=== PATIENT | female | born 1985 | race African-American/Black ===

== ENCOUNTER → 2017-07-03 11:38 | Outpatient (CLI) | payer MEDICAID, SELFPAY ==
[2017-07-03 12:46] LABS: Absolute Lymphocyte Count 2.88 X10^3/ul (0.83-4.51); Absolute Neutrophil Count 2.6 X10^3/uL (2.0-7.7); Basophil# 0.03 X10^3/uL; Basophil% 0.5 % (0-1); Eosinophil# 0.17 X10^3/uL; Eosinophils% 2.7 % (0-5); Hematocrit 29.8 % (37-47); Hemoglobin 9.5 g/dl (12.0-15.0); Lymphocyte # 2.88 X10^3/ul (4.0); Lymphocyte % 46.3 % (19-41); Mean Corp Hgb Conc 31.9 g/gl (32-36); Mean Corpuscular Hgb 24.7 pg (27.0-32.0); Mean Corpuscular Volume 77.6 fL (81-99); Mean Platelet Vol. 10.3 fl (6.2-12.0); Monocyte# 0.59 X10^3/uL; Monocyte% 9.5 % (0-10); Neutrophil # 2.55 X10^3/uL (2.7-7.7); Platelet Count 320 K/mm3 (150-450); RBC Distribution Width CV 16.2 % (11.6-14.6); RBC Distribution Width SD 43.9 fl (35.1-43.9); Red Blood Count 3.84 M/mm3 (4.2-5.4); White Blood Count 6.2 K/mm3 (4.4-11.0)
[2017-07-03 12:51] LABS: POSITIVE COUNT NO; POSITIVE DIFFERENTIAL NO; POSITIVE MORPHOLOGY NO
[2017-07-03 13:21] LABS: Estradiol 64.1 pg/mL; Follicle Stimulating Hormone 5.4 mIU/mL; Prolactin 7.5 ng/mL; Thyroid Stim Hormone (TSH) 2.22 uIU/mL (0.358-3.74)
[2017-07-07 14:07] LABS: DHEA Sulfate 45.7 ug/dL (84.8-378.0); Dilute Russell Viper Venom 34.4 sec (0.0-47.0); Homocyst(e)ine 9.7 umol/L (0.0-15.0); PTT-Lupus Anticoagulant 31.9 sec (0.0-51.9); Protein C, Functional 113 % (73-180); dPT CONFIRMATION RATIO 1.02 Ratio (0.00-1.40)
[2017-07-07 14:16] LABS: Activated Protein C Resistance 2.5 ratio (2.2-3.5); Anti-Cardiolipin Ab, IgG, Qn < 9 GPL U/mL (0-14); Anti-Cardiolipin Ab, IgM, Qn < 9 MPL U/mL (0-12); Antithrombin 3 Function 96 % (75-135); Beta-2-Glycoprotein I IgG <9 (0-20); Beta-2-Glycoprotein I IgM <9 (0-32); Interpretation Comment: (.); Protein S, Free 100 % (57-157); Testosterone Free 1.5 pg/mL (0.0-4.2)
[2017-07-08 11:46] LABS: 17-Hydroxyprogesterone 51 ng/dL (.)
== END ==
PROVIDERS: Family Provider Family Medicine; PCP Family Medicine; Visit Provider Obstetrics & Gynecology
DX: N92.0 Excessive and frequent menstruation with regular cycle (principal)
CPT/HCPCS: 36415; 81240; 81241; 82627; 82670; 83001; 83090; 83498; 84146; 84402; 84443; 85025; 85300; 85303; 85307; 85420; 85613; 85705; 85732; 82626

== ENCOUNTER → 2017-07-15 08:02 | Outpatient (CLI) | payer MEDICAID, SELFPAY ==
--- NOTE | 2017-07-15 08:04 | US_ITS ---
STUDY: ULTRASOUND OF THE FEMALE PELVIS - COMPLETE REASON FOR EXAM: Female, 32 years old. Dysfunctional uterine bleeding. Polycystic ovaries syndrome. LMP: May 25, 2017. TECHNIQUE: Transabdominal and Transvaginal TECHNICAL QUALITY: Adequate. COMPARISON: Comparison is made with prior examination dated November 14, 2013. FINDINGS: The uterus is anteverted and is in a midline position. The uterus is enlarged and measures 13.8 cm x 7.4 cm x 6.0 cm. Normal uterine cervix. The endometrium measures 7.0 mm in thickness, and is hyperechoic. There is no demonstrated endometrial mass. 2 fibroids are seen. The larger measures 3.9 cm x 3.1 cm x 2.4 cm. I.U.D. - The patient does not have an I.U.D. The right ovary is visualized. The right ovary measures 3.9 cm x 3.2 cm x 2.5 cm. There is no right ovarian cyst or ovarian mass. There is no visualized right adnexal mass or complex lesion. There is normal arterial and normal venous vascularity. The left ovary is visualized. The left ovary measures 4.0 cm x 52.8 cm x 2.0 cm. There is no left ovarian cyst or ovarian mass. There is no visualized left adnexal mass or complex lesion. There is normal arterial and normal venous vascularity. There is no fluid in the cul-de-sac. US/Transvaginal Non- IMPRESSION: Enlarged fibroid uterus. Electronically Signed: Alex Shipman MD at 14:25 EDT Tel [phone], Service support ,
--- NOTE | 2017-07-15 08:04 | US_ITS ---
STUDY: ULTRASOUND OF THE FEMALE PELVIS - COMPLETE REASON FOR EXAM: Female, 32 years old. Dysfunctional uterine bleeding. Polycystic ovaries syndrome. LMP: May 25, 2017. TECHNIQUE: Transabdominal and Transvaginal TECHNICAL QUALITY: Adequate. COMPARISON: Comparison is made with prior examination dated November 14, 2013. FINDINGS: The uterus is anteverted and is in a midline position. The uterus is enlarged and measures 13.8 cm x 7.4 cm x 6.0 cm. Normal uterine cervix. The endometrium measures 7.0 mm in thickness, and is hyperechoic. There is no demonstrated endometrial mass. 2 fibroids are seen. The larger measures 3.9 cm x 3.1 cm x 2.4 cm. I.U.D. - The patient does not have an I.U.D. The right ovary is visualized. The right ovary measures 3.9 cm x 3.2 cm x 2.5 cm. There is no right ovarian cyst or ovarian mass. There is no visualized right adnexal mass or complex lesion. There is normal arterial and normal venous vascularity. The left ovary is visualized. The left ovary measures 4.0 cm x 52.8 cm x 2.0 cm. There is no left ovarian cyst or ovarian mass. There is no visualized left adnexal mass or complex lesion. There is normal arterial and normal venous vascularity. There is no fluid in the cul-de-sac. US/Pelvic (Non ) IMPRESSION: Enlarged fibroid uterus. Electronically Signed: Alex Shipman MD at 14:25 EDT Tel [phone], Service support ,
[2017-07-15 09:32] VITALS: BP 146/94; RESP 18; TEMP 36.1; O2SAT 100; BMI 48.9
[2017-07-15] MEDS: Cosyntropin 0.25 MG Vial IV (09:40)
[2017-07-15 10:05] LABS: Anion Gap 5 (5-15); BUN 6 mg/dL (7-18); BUN/Creat Ratio 6.7 RATIO (10-20); Calcium,Total 8.4 mg/dL (8.5-10.1); Chloride 107 mmol/L (98-107); Creatinine, Serum 0.89 mg/dL (0.55-1.02); EST Glomerular Filtration Rate 78 mL/min (>60); Est Glom Filt Rate - Afr Amer 95 mL/min (>60); Estimated Creatinine Clearance 89.06 ml/min; Glucose 94 mg/dL (74-106); Potassium 4.1 mmol/L (3.5-5.1); Sodium Level 137 mmol/L (136-145)
== END ==
PROVIDERS: Visit Provider Obstetrics & Gynecology
DX: R94.7 Abnormal results of other endocrine function studies (principal); N92.0 Excessive and frequent menstruation with regular cycle
CPT/HCPCS: 96374; 76830; 76856; 80048; 82533; 93976; A4216; J0834

== ENCOUNTER 2018-10-27 18:17 | Emergency (ER) | payer MEDICAID, SELFPAY ==
[2018-10-27 18:18] VITALS: BP 160/81; PULSE 108; RESP 17; TEMP 36.6; O2SAT 99; BMI 47.2
--- NOTE | 2018-10-27 18:29 | EKG12_ITS ---
Test Reason : CP Blood Pressure : / mmHG Vent. Rate : 100 BPM Atrial Rate : 100 BPM P-R Int : 202 ms QRS Dur : 086 ms QT Int : 354 ms P-R-T Axes : 053 076 017 degrees QTc Int : 456 ms Normal sinus rhythm Nonspecific T wave abnormality Abnormal ECG No previous ECGs available Confirmed by EDGARDO MARTINO, ANGELA ([id number]), publication editor GINA CASEY ([id number]) on 11/10/2018 2:18:07 PM Referred By: ALLEN Confirmed By:ANGELA REYNOSO MD
--- NOTE | 2018-10-27 18:31 | ED.VIS.GEN ---
History of Present Illness Chief Complaint: Shortness of Breath Informant: Patient Onset: Weeks - 1 Narrative: Worsening dyspnea over the past week. No chest pains. No cough. Reports increasing left calf pain past no recent travel, surgeries, immobilizations. 5 days. No history of PE reports history of left DVT 2015 treated for 6 months. Reports was started on oral contraceptives prior to her DVT. Since then been taken off. There is no tobacco history. No family history of clotting disorders. History of anemia on iron supplements due to heavy menstrual periods. Irregular menstrual cycles. Denies abdominal pain. No vomiting or diarrhea. Prior similar symptoms: Yes Past Medical History - Allergies and Home Meds Allergies/Adverse Reactions: Allergies morphine Adverse Reaction (Verified 10/27/18 18:18) Itching sulfamethoxazole [From Bactrim] Adverse Reaction (Verified 10/27/18 18:18) Itching trimethoprim [From Bactrim] Adverse Reaction (Verified 10/27/18 18:18) Itching Primary Care Physician: Care Physician,No Primary [Primary Care Provider] - Smoking Status: Never smoker Review of Systems General: Denies: Chills, Fever, Sweats Eyes: Denies: Visual changes - bilaterally, Diplopia ENT: Denies: Rhinorrhea, Sore throat Cardiovascular: Denies: Chest pain, Palpitations Respiratory: Reports: Dyspnea. Denies: Cough, Dyspnea on exertion Gastrointestinal: Denies: Abdominal pain, Nausea, Vomiting, Diarrhea, Melena, Hematochezia Genitourinary: Denies: Dysuria, Hematuria, Frequency Musculoskeletal: Reports: Myalgias. Denies: Back pain, Extremity Pain Skin: Denies: Rash, Wounds Neurological: Denies: Headache, Weakness, Numbness Physical Exam Vital Signs/Narrative: Vital Signs Temp Pulse Resp BP Pulse Ox 10/27/18 18:18 97.8 F 108 H 17 160/81 H 99 Inital Vital Signs reviewed: Yes General: Well nourished, Well developed, No Acute Distress Head: Normocephalic, Atraumatic Eyes: Perrl, EOMI ENT: Moist mucous membranes, No rhinorrhea Neck: Supple, Nontender Cardiovascular: Regular rate, Regular rhythm, No murmurs Respiratory: No distress, CTA bilaterally, Chest nontender Abdomen: Soft, Nontender, Nondistended, Normal bowel sounds Back: Nontender, Normal Inspection Extremities: No edema, - - Left calf pain, pulses intact distally. Skin: Normal color, No rash Neurological: Alert, Oriented x3, Cranial nerves II-XII grossly intact, Normal Strength, Normal Sensation Psychological: Normal affect, Normal Mood Diagnostic/Tx/Re-eval Abnormal Lab Results 10/27/18 10/27/18 10/27/18 18:50 18:50 18:50 WBC 9.6 RBC 4.57 Hgb 8.3 L Hct 27.4 L MCV 60.0 L MCH 18.2 L MCHC 30.3 L RDW 21.0 H RDW Differential 44.1 H Plt Count 366 MPV 9.1 Immature Gran % (Auto) 0.200 Neut % (Auto) 52.9 Lymph % (Auto) 36.0 Gilmer % (Auto) 8.1 Eos % (Auto) 2.3 Baso % (Auto) 0.5 Absolute Neuts (auto) 5.1 Absolute Lymphs (auto) 3.46 Total Counted Not Reportable Differential Comment SCANNED Diff Path Review May foll Platelet Estimate ADEQUATE Plt Morphology Comment LARGE Hypochromasia 2+ Poikilocytosis RARE Anisocytosis 4+ Microcytosis 2+ Target Cells RARE Ovalocytes 1+ PT 13.5 INR 1.1 APTT 26.3 D-Dimer Quant (PE/DVT) 2.02 H* Sodium 137 Potassium 3.4 L Chloride 105 Carbon Dioxide 26.0 Anion Gap 6 BUN 6 L Creatinine 0.96 Estim Creat Clear Calc 81.81 Est GFR (MDRD) Af Amer 87 Est GFR (MDRD) Non-Af 72 BUN/Creatinine Ratio 6.3 L Glucose 96 Calcium 9.0 Serum , Qual 10/27/18 18:50 WBC RBC Hgb Hct MCV MCH MCHC RDW RDW Differential Plt Count MPV Immature Gran % (Auto) Neut % (Auto) Lymph % (Auto) Gilmer % (Auto) Eos % (Auto) Baso % (Auto) Absolute Neuts (auto) Absolute Lymphs (auto) Total Counted Differential Comment Diff Path Review Platelet Estimate Plt Morphology Comment Hypochromasia Poikilocytosis Anisocytosis Microcytosis Target Cells Ovalocytes PT INR APTT D-Dimer Quant (PE/DVT) Sodium Potassium Chloride Carbon Dioxide Anion Gap BUN Creatinine Estim Creat Clear Calc Est GFR (MDRD) Af Amer Est GFR (MDRD) Non-Af BUN/Creatinine Ratio Glucose Calcium Serum , Qual NEGATIVE CTA chest: No PE Left lower extremity ultrasound: Popliteal DVT - EKG Initial EKG Interpretation: Sinus Rhythm - Sinus rhythm of 100, no ST changes. Nonspecific T wave inversion in leads III. There is a Q3 T3 noted there is no S1. - Medical Decision Making Patient initial tachycardia, improved. She is given IV fluids. Pulse ox stable. Work-up positive left popliteal DVT. CTA chest negative. Hemoglobin 8.3 history of anemia. She is on iron supplements. Denies GI bleed history. Normal creatinine clearance. She started on Xarelto. With unprovoked recurrent DVT discussed with patient lifelong therapy would be treatment. She likely need hypercoagulable work-up as an outpatient. I spoke with alarm signaler Dr. Lares, sent for Cardiolipin antibodies and prothrombin gene mutation(factor 2) for further evaluation. He will follow-up as an outpatient for further work-up. Patient updated. Prescription for 21-day course twice daily Xarelto, will continue as an outpatient. All questions were answered. 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 Take prescription iron supplements. Left popliteal DVT. Negative CTA chest for PE. Takes Xarelto as prescribed, follow-up with Dr. Lares for further work-up as an outpatient.
--- NOTE | 2018-10-27 18:38 | ED.RN ---
NO OLD EKGS IN MUSE
[2018-10-27 19:03] LABS: Absolute Lymphocyte Count 3.46 X10^3/ul (0.83-4.51); Absolute Neutrophil Count 5.1 X10^3/uL (2.0-7.7); Basophil# 0.05 X10^3/uL; Basophil% 0.5 % (0-1); Eosinophil# 0.22 X10^3/uL; Eosinophils% 2.3 % (0-5); Hematocrit 27.4 % (37-47); Hemoglobin 8.3 g/dl (12.0-15.0); Lymphocyte # 3.46 X10^3/ul (4.0); Mean Corp Hgb Conc 30.3 g/gl (32-36); Mean Corpuscular Hgb 18.2 pg (27.0-32.0); Mean Platelet Vol. 9.1 fl (6.2-12.0); Monocyte# 0.78 X10^3/uL; Monocyte% 8.1 % (0-10); Neutrophil # 5.08 X10^3/uL (2.7-7.7); Neutrophil % 52.9 % (47-70); Platelet Count 366 K/mm3 (150-450); RBC Distribution Width SD 44.1 fl (35.1-43.9); Red Blood Count 4.57 M/mm3 (4.2-5.4); White Blood Count 9.6 K/mm3 (4.4-11.0)
[2018-10-27 19:04] LABS: Differential Indicated SCAN CRITERIA MET; POSITIVE COUNT NO; POSITIVE DIFFERENTIAL NO; POSITIVE MORPHOLOGY YES
[2018-10-27 19:07] LABS: International Normalized Ratio 1.1; Prothrombin Time (Protime)PT. 13.5 SECONDS (11.7-14.9)
[2018-10-27 19:08] LABS: Partial Thromboplast Time 26.3 Seconds (24.1-36.2)
[2018-10-27 19:10] LABS: Anion Gap 6 (5-15); BUN 6 mg/dL (7-18); BUN/Creat Ratio 6.3 RATIO (10-20); Chloride 105 mmol/L (98-107); Creatinine, Serum 0.96 mg/dL (0.55-1.02); EST Glomerular Filtration Rate 72 mL/min (>60); Est Glom Filt Rate - Afr Amer 87 mL/min (>60); Estimated Creatinine Clearance 81.81 ml/min; Glucose 96 mg/dL (74-106); Potassium 3.4 mmol/L (3.5-5.1); Sodium Level 137 mmol/L (136-145)
--- NOTE | 2018-10-27 19:10 | US_ITS ---
STUDY: VENOUS DOPPLER ULTRASOUND - BILATERAL LOWER EXTREMITIES REASON FOR EXAM: Female, 33 years old. Swelling. TECHNIQUE: Ultrasound evaluation of the deep vein system to include akins-scale imaging and compression was performed. Akins-scale imaging and Doppler sonographic evaluation, including duplex spectral analysis and qualitative color flow sonography, was performed. COMPARISON: None. FINDINGS: RIGHT LEG Common Femoral Vein: Normal compression, spontaneity and augmentation. Normal color Doppler. Common Femoral Vein/Greater Saphenous Junction: Normal compression, spontaneity and augmentation. Normal color Doppler. Femoral Proximal: Normal compression, spontaneity and augmentation. Normal color Doppler. Femoral Middle: Normal compression, spontaneity and augmentation. Normal color Doppler. Femoral Distal: Normal compression, spontaneity and augmentation. Normal color Doppler. Popliteal Vein: Normal compression, spontaneity and augmentation. Normal color Doppler. Posterior Tibial Vein: Normal color Doppler. Peroneal Vein: Normal color Doppler. LEFT LEG Common Femoral Vein: Normal compression and spontaneity. Normal color Doppler. Common Femoral Vein/Greater Saphenous Junction: Normal compression and spontaneity. Normal color Doppler. Femoral Proximal: Normal compression and spontaneity. Normal color Doppler. Femoral Middle: Normal compression and spontaneity. Normal color Doppler. Femoral Distal: Normal compression and spontaneity. Normal color Doppler. Popliteal Vein: There is a echogenic noncompressible focus consistent with underlying thrombus which is occlusive. US/Venous Duplex Imag/Manav Extrem IMPRESSION: Thrombosed left popliteal vein. No demonstrated deep vein thrombosis within the right lower extremity. Electronically Signed: Liane Carreno MD at 20:35 EDT Tel , Service support ,
[2018-10-27 19:17] VITALS: BP 158/85; PULSE 101; RESP 17; O2SAT 96
[2018-10-27 19:29] LABS: D-Dimer Quantitative (DVT/PE) 2.02 FEU/ug/m (0.27-0.49); Internal QC Validated? YES +Cl - CLEAR BKGD; Pregnancy, Serum, hCG Quali. NEGATIVE Negative
--- NOTE | 2018-10-27 19:30 | ED.RN ---
LAB CALLED WITH D-DIMER 2.02, PRIMARY NURSE, KASANDRA REAVES RN, AND DR. NANNETTE ROSA INFORMED OF SAME.
--- NOTE | 2018-10-27 19:34 | CT_ITS ---
STUDY: CTA CHEST REASON FOR EXAM: Female, 33 years old. Elevated d-dimer. History of DVT. RADIATION DOSAGE (If Supplied By Facility): CTDIvol = ( 12.66 ) mGy, DLP = ( 549.35 ) mGycm TECHNIQUE: The examination was performed with the intravenous administration of 100ML IV Isovue 370. Post-processing of the angiographic images was performed, with multiplanar reformation and 3D reconstruction. Individualized dose optimization techniques were used for this CT. COMPARISON: None. FINDINGS: Normal enhancement of the main pulmonary artery and right and left pulmonary arteries. There is suboptimal enhancement of the bilateral peripheral pulmonary arteries. There is no demonstrated pulmonary embolism. Normal thoracic aorta and visualized great vessels. There is no demonstrated aortic dissection. Normal heart and pericardium. Normal mediastinum. Normal hilar regions. Normal visualized trachea and bronchi. The lungs are well expanded. Normal pulmonary parenchyma. Normal pleura. Normal chest wall structures. Normal osseous structures. Normal visualized upper abdomen. CT/CTA Chest W/WO Contrast IMPRESSION: Normal CTA chest examination, without a demonstrated gross pulmonary embolism or arterial dissection. Electronically Signed: Liane Carreno MD at 20:48 EDT Tel , Service support ,
[2018-10-27 19:55] LABS: Anisocytosis 4+; Differential Comment SCANNED; Hypochromasia 2+; Microcytosis 2+; Ovalocyte 1+; Platelet Estimate ADEQUATE (ADEQ); Poikilocytosis RARE; Target Cells RARE
[2018-10-27 19:56] LABS: Platelet Morphology LARGE
[2018-10-27 21:00] VITALS: BP 129/84; PULSE 88; RESP 16; O2SAT 100
[2018-10-27] MEDS: Rivaroxaban 15 MG Tablet PO (21:37)
[2018-10-27 22:00] VITALS: BP 124/82; PULSE 78; RESP 18; O2SAT 100
[2018-10-29 10:21] LABS: Pathologist Review Reviewed
[2018-10-30 11:59] LABS: Anti-Cardiolipin Ab, IgA, Qn < 9 APL U/mL (0-11); Anti-Cardiolipin Ab, IgG, Qn 9 GPL U/mL (0-14); Anti-Cardiolipin Ab, IgM, Qn < 9 MPL U/mL (0-12)
== END 2018-10-27 22:26 | disposition home or self-care (01) ==
PROVIDERS: Emergency Provider Emergency Medicine
DX: I82.432 Acute embolism and thrombosis of left popliteal vein (principal); D64.9 Anemia, unspecified; Z86.718 Personal history of other venous thrombosis and embolism
CPT/HCPCS: 71275; 80048; 84703; 85025; 85379; 85610; 85730; 86147; 93005; 93970; 96360; 99284; J7030; J7040; Q9967; A4216

== ENCOUNTER → 2021-10-16 | Outpatient (CLI) | payer MEDICAID, SELFPAY ==
[2021-10-16 15:49] LABS: Absolute Neutrophil Count 3.6 X10^3/uL (2.0-7.7); Basophil# 0.05 X10^3/uL; Basophil% 0.6 % (0-1); Eosinophil# 0.19 X10^3/uL; Eosinophils% 2.5 % (0-5); Hematocrit 27.2 % (37-47); Hemoglobin 7.6 g/dL (12.0-15.0); Lymphocyte % 41.3 % (19-41); Mean Corp Hgb Conc 27.9 g/dL (32-36); Mean Corpuscular Hgb 17.9 pg (27.0-32.0); Mean Corpuscular Volume 64.2 fL (81-99); Monocyte# 0.69 X10^3/uL; Monocyte% 8.9 % (0-10); NRBC Flagged by Analyzer 0 % (0-5); Neutrophil % 46.4 % (47-70); Platelet Count 556 K/mm3 (150-450); RBC Distribution Width SD 44.2 fl (35.1-43.9); Red Blood Count 4.24 M/mm3 (4.2-5.4); White Blood Count 7.8 K/mm3 (4.4-11.0)
[2021-10-16 19:54] LABS: ALB/GLOB Ratio 0.7 RATIO (0.9-2.4); AST(SGOT) 15 U/L (15-37); Alanine Aminotransfer ALT/SGPT 23 U/L (13-56); Albumin, Serum 3.4 g/dL (3.2-5.0); Alkaline Phosphatase 49 U/L (45-117); Anion Gap 4 (5-15); BUN 11 mg/dL (7-18); BUN/Creat Ratio 11.3 RATIO (10-20); Calcium,Total 9.2 mg/dL (8.5-10.1); Chloride 105 mmol/L (98-107); Cholesterol 198 mg/dL (200); Creatinine, Serum 0.98 mg/dL (0.55-1.02); EST Glomerular Filtration Rate 69 mL/min (>60); Est Glom Filt Rate - Afr Amer 83 mL/min (>60); Ferritin 3 ng/mL (8-252); Glucose 88 mg/dL (74-106); High Density Lipoprotein 55 mg/dL; Iron 13 ug/dL (50-170); Iron Binding Capacity,Total 504 ug/dL (250-450); Potassium 4.1 mmol/L (3.5-5.1); Protein, Total 8.4 g/dL (6.4-8.2); Sodium Level 139 mmol/L (136-145); Triglycerides 95 mg/dL; Very Low Density Lipoprotein 19 mg/dL (5-40)
== END | disposition home or self-care (01) ==
LOC: BIMLAB 14:41
PROVIDERS: PCP Internal Medicine; Referring Provider Internal Medicine; Visit Provider Internal Medicine
DX: D50.0 Iron deficiency anemia secondary to blood loss (chronic) (principal); E66.01 Morbid (severe) obesity due to excess calories; Z68.42 Body mass index [BMI] 45.0-49.9, adult; Z86.718 Personal history of other venous thrombosis and embolism; Z13.6 Encounter for screening for cardiovascular disorders
CPT/HCPCS: 36415; 80053; 80061; 82728; 83540; 83550; 85025

== ENCOUNTER → 2021-10-23 | Outpatient (CLI) | payer MEDICAID, SELFPAY ==
--- NOTE | 2021-10-23 19:10 | CT_ITS ---
STUDY: CT ABDOMEN AND PELVIS WITH CONTRAST REASON FOR EXAM: Female, 36 years old. Suspected hernia RADIATION DOSAGE (If Supplied By Facility): CTDIvol = ( 26.62 ) mGy, DLP = ( 1752.05 ) mGycm TECHNIQUE: Transaxial images were obtained from the dome of the diaphragm to the symphysis pubis without oral contrast. Oral and amp; IV Readi-CAT and amp; 100mL Isovue-370 was administered. Sagittal and coronal images were reconstructed. Individualized dose optimization techniques were used for this CT. COMPARISON: None. FINDINGS: The visualized lung bases are unremarkable. The visualized portions of the heart are within normal limits. Normal liver. Normal gallbladder and extrahepatic biliary system. Normal spleen. Normal pancreas. Normal bilateral adrenal glands. Normal right kidney. Normal left kidney. Normal visualized stomach. Normal small intestine. Normal colon. The appendix is visualized and appears normal. Normal abdominal aorta. Normal inferior vena cava. Normal retroperitoneum. Normal urinary bladder. There is a small fat-containing supraumbilical hernia slightly left of midline with a neck measuring 1.4 cm in diameter. Normal osseous structures. CT/Abdomen/Pelvis WITH Contrast IMPRESSION: Supraumbilical fat-containing ventral hernia. Electronically Signed: Liane Carreno MD at 20:04 EDT ,
--- NOTE | 2021-10-23 19:47 | BH.SGPN.T2 ---
Behaviors/Verbalizations/Mental Status: [] Client Response/Progress/Benefit: [] Narrative Note: []PT STATED SHE FELT IF THERE WAS FLUID IN HER UPPER ARM-WARM COMPRESSION USED AND REMOVED HER IV-GAVE HER PAPERWORK FOR INFORMATION IN CASE SHE HAS ISSUES
== END | disposition home or self-care (01) ==
LOC: CT 19:09
PROVIDERS: PCP Internal Medicine; Visit Provider Internal Medicine
DX: K43.9 Ventral hernia without obstruction or gangrene (principal)
CPT/HCPCS: 74177; Q9967; A4216

== ENCOUNTER → 2021-11-19 | Outpatient (CLI) | payer MEDICAID, SELFPAY ==
[2021-11-19 15:44] LABS: Absolute Lymphocyte Count 2.29 X10^3/uL (0.83-4.51); Absolute Neutrophil Count 3.5 X10^3/uL (2.0-7.7); Basophil# 0.03 X10^3/uL; Basophil% 0.4 % (0-1); Eosinophil# 0.17 X10^3/uL; Eosinophils% 2.5 % (0-5); Hematocrit 24.6 % (37-47); Hemoglobin 6.8 g/dL (12.0-15.0); Lymphocyte # 2.29 X10^3/ul (0.83-4.51); Lymphocyte % 34.1 % (19-41); Mean Corp Hgb Conc 27.6 g/dL (32-36); Mean Corpuscular Hgb 17.2 pg (27.0-32.0); Mean Corpuscular Volume 62.1 fL (81-99); Mean Platelet Vol. 9.8 fl (6.2-12.0); Monocyte# 0.68 X10^3/uL; Monocyte% 10.1 % (0-10); NRBC Flagged by Analyzer 0 % (0-5); Neutrophil # 3.54 X10^3/uL (2.7-7.7); Neutrophil % 52.8 % (47-70); POSITIVE MORPHOLOGY YES; Platelet Count 514 K/mm3 (150-450); RBC Distribution Width CV 20.6 % (11.6-14.6); RBC Distribution Width SD 44.5 fl (35.1-43.9); Red Blood Count 3.96 M/mm3 (4.2-5.4); White Blood Count 6.7 K/mm3 (4.4-11.0)
[2021-11-19 16:08] LABS: Differential Indicated SCAN CRITERIA MET
[2021-11-19 16:10] LABS: Anisocytosis 2+; Hypochromasia 2+; Microcytosis 2+; Platelet Estimate MOD INC (ADEQ); Platelet Morphology LARGE; Red Cell Morphology N CHROM NORMAL (NORM C&C)
[2021-11-19 16:15] LABS: Ferritin 3 ng/mL (8-252); Iron 21 ug/dL (50-170); Iron Binding Capacity,Total 481 ug/dL (250-450)
[2021-11-20 12:52] LABS: Pathologist Review Reviewed
== END | disposition home or self-care (01) ==
LOC: BIMLAB 11:42
PROVIDERS: PCP Internal Medicine; Referring Provider Internal Medicine; Visit Provider Internal Medicine
DX: D50.0 Iron deficiency anemia secondary to blood loss (chronic) (principal)
CPT/HCPCS: 36415; 82728; 83540; 83550; 85025

== ENCOUNTER 2021-11-28 20:50 | Emergency (ER) | payer MEDICAID, SELFPAY ==
[2021-11-28 20:51] VITALS: BP 172/102; PULSE 100; RESP 18; TEMP 36.6; O2SAT 98; BMI 43.8
--- NOTE | 2021-11-28 21:09 | EKG12_ITS ---
Test Reason : PALPITATIONS Blood Pressure : / mmHG Vent. Rate : 095 BPM Atrial Rate : 095 BPM P-R Int : 196 ms QRS Dur : 084 ms QT Int : 362 ms P-R-T Axes : 052 071 027 degrees QTc Int : 454 ms Normal sinus rhythm Nonspecific T wave abnormality Abnormal ECG Confirmed by PRANAY MARTINO, JARED ([id number]), editor index HANNAH MALLOY ([id number]) on 12/03/2021 11:11:06 AM Referred By: JULITO/HIREN Confirmed By:HUEY PIRES MD
--- NOTE | 2021-11-28 21:09 | EX.ED.DYSGE1 ---
HPI History of Present Illness Chief Complaint: Abn Labs Detail of Chief Complaint: anemic Informant: patient Narrative Narrative: Patient has a history of menorrhagia since she was age 13, in addition to iron deficiency anemia, with recent lab studies showing low iron and high ferritin and TIBC 1-2 weeks ago. She does not tolerate iron supplements, rather is taking Geritol in order to get at least a little. Recently her levels were around 7.6, then she had a menstrual cycle again and went down to 6.7. Her PCP is trying to get her set up for iron infusions but there were insurance issues and she has not been able to get it yet, so since she has been continuing to feel very fatigued and dyspnea with little exertion, she was sent for another evaluation of her H&H in the meantime to see if she needs a blood transfusion, she has had many throughout the years off and on. They were trying to get it done as an outpatient but she had work until late in the lab was already closed and she was sent to the ER. She states with short stints of walking, such as from her home to her car, she gets chest heaviness, very dyspneic, her heart beats hard and occasionally fast, lightheaded at times, and needs to rest, which helps all the symptoms resolve in a short period of time. Since her last blood draw, she has not had a menstrual cycle yet. She is scheduled to see Dr. Mak, hoping that she can get a hysterectomy scheduled. She also has a reducible hernia ventrally supraumbilical that she is hoping to have repaired 1 day as well. [facility] Medical History Abnormal Pap smear of cervix Anemia DVT (deep venous thrombosis) Headache, migraine Murmur Polycystic ovaries Home Medications bupropion HCl 150 mg tablet,12 hr sustained-release (Wellbutrin SR) 150 mg PO BID #60 ea 11/19/21 [Rx Last Taken Unknown] geritol liquid PO 11/19/21 [History Last Taken Unknown] Allergy/AdvReac Type Severity Reaction Status Date / Time morphine AdvReac Itching Verified 11/28/21 20:53 sulfamethoxazole AdvReac Itching Verified 11/28/21 20:53 [From Bactrim] trimethoprim [From Bactrim] AdvReac Itching Verified 11/28/21 20:53 Family History Grandmother Breast cancer Grandfather Cancer lung Throat cancer Mental disorder schizophrenia Mother Alcoholism Autoimmune disorder RA and fibromyalgia Father Alcoholism Aunt Cervical cancer Melanoma Ovarian cancer Surgical History delivery delivered History of foot surgery Social History household members: significant other and children current occupational status: employed 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 Smoking Status: Never smoker Electronic Cigarette Use: not used alcohol intake: never substance use type: does not use caffeine: Yes what type of physical activity do you participate in: aerobics frequency: 5-6 times per week seatbelt use: always do you feel safe at home: Yes 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 ROS ED Constitutional Constitutional ED: Reports fatigue; Denies chills or fever(s) Eyes Eyes: Denies change in vision or diplopia ENT ENT ED: Denies rhinorrhea or sore throat Cardiovascular Cardiovascular: Reports as per HPI, chest pain, lightheadedness and pounding heartbeat; Denies syncope Respiratory/Chest Respiratory/Chest: Reports dyspnea on exertion; Denies cough Gastrointestinal Gastrointestinal: Denies abdominal pain, diarrhea, nausea or vomiting Genitourinary Genitourinary ED: Reports other Details: heavy vaginal bleeding during menstrual cycles ; Denies dysuria or hematuria Musculoskeletal Musculoskeletal: Denies back pain or neck pain Integumentary Denies abscess or rash Neurologic Neurologic: Denies headache(s), paresthesias or weakness Psychiatric Psychiatric: Denies anxiety or suicidal thoughts EXAM Physical Exam Const Vital Signs: 11/28/21 20:51 11/28/21 20:57 Temperature 97.9 F Temperature Source Temporal Pulse Rate 100 Respiratory Rate 18 Respiratory Effort Normal Respiratory Pattern Normal Blood Pressure 172/102 H Blood Pressure Mean 125 Pulse Ox 98 Oxygen Delivery Method Room Air Positive well nourished, well developed and obese General Appearance ED: well developed and NAD Nutritional Appearance: obese HEENT Reports moist mucous membranes normocephalic and atraumatic Eyes PERRL and EOMs intact bilaterally General Eye ED: Yes pale conjunctiva Neck full ROM and supple Resp normal respiratory effort and clear to auscultation bilaterally Cardio regular rate, regular rhythm and no murmurs GI non-tender and non-distended Auscultation: normoactive bowel sounds Palpation: soft Back/Spine no CVA tenderness General Back: other FROM Extremity normal to inspection General Extremety ED: Negative for edema, pulses abnormal or tenderness General Extremity: Negative for edema or pulses abnormal Neuro oriented x3, CN's II-XII intact bilaterally and no sensory deficits noted Sensorium / Orientation: awake and alert Motor Exam: strength 5/5 throughout Psych mental status grossly normal Skin no rashes or lesions noted and no wounds MDM MDM MDM Narrative Medical decision making narrative: Patient's hemoglobin is 7.4, which is higher than the 1 she had 2 weeks ago, similar to the one she had in October. This is good, and in my opinion she does not need a blood transfusion at this time. Her EKG is normal. Her is negative. For now I think it is okay that she be discharged and follow-up with hematology and gynecology as scheduled unless things change in the near future she is comfortable with that plan. Lab Data Attestation: I reviewed the patient's lab results. Labs: Laboratory Results - last 24 hr 11/28/21 11/28/21 21:09 21:09 WBC 8.2 RBC 4.36 Hgb 7.4 L Hct 26.9 L MCV 61.7 L MCH 17.0 L MCHC 27.5 L RDW Std Deviation 43.6 RDW Coeff of Schuyler 20.4 H Plt Count 580 H MPV 9.7 Serum , Qual NEGATIVE Rhythm Strip Rhythm Strip: Sinus Rhythm Rate: 95 Ectopy: None EKG Initial EKG: Attestation: I personally reviewed and interpreted this EKG as follows: Interpretation: Sinus Rhythm and No Acute Injury Pattern Discharge Plan Triage Chief Complaint: Abn Labs ED Provider: Celestine Chavez Dx/Rx/DC Orders Clinical Impression: Symptomatic anemia, Menorrhagia, Iron deficiency anemia Instructions: ED Anemia, Iron-Deficiency (Adult) Prescriptions: No Action geritol liquid PO bupropion HCl [Wellbutrin SR] 150 mg tablet sustained-release 12 hr 150 mg PO BID Qty: 60 2RF Rx Instructions: take once daily for 3 days, then increase to twice daily Primary Care Provider: Catalina Nicole Referrals: Catalina Nicole MD [Primary Care Provider] - (And/or gynecology, hematology as scheduled) Activity Restrictions/Additional Instructions: Hemoglobin today 7.4. Your last one was 6.8, in October you were 7.6. Disposition Disposition: Home, Self Care
[2021-11-28 21:25] LABS: Hematocrit 26.9 % (37-47); Hemoglobin 7.4 g/dL (12.0-15.0); Mean Corp Hgb Conc 27.5 g/dL (32-36); Mean Corpuscular Volume 61.7 fL (81-99); Mean Platelet Vol. 9.7 fl (6.2-12.0); POSITIVE MORPHOLOGY YES; Platelet Count 580 K/mm3 (150-450); RBC Distribution Width CV 20.4 % (11.6-14.6); RBC Distribution Width SD 43.6 fl (35.1-43.9); Red Blood Count 4.36 M/mm3 (4.2-5.4); White Blood Count 8.2 K/mm3 (4.4-11.0)
[2021-11-28 21:38] LABS: Scan Indicated on CBC? Y/N YES- FLAGS NOTED
[2021-11-28 21:52] LABS: Internal QC Validated? YES +Cl - CLEAR BKGD; Pregnancy, Serum, hCG Quali. NEGATIVE Negative
[2021-11-28 22:11] VITALS: BP 156/66; PULSE 72; RESP 14; O2SAT 98
[2021-11-28 23:15] LABS: Differential Comment SCANNED
== END 2021-11-28 22:11 | disposition home or self-care (01) ==
PROVIDERS: Emergency Provider Emergency Medicine; PCP Internal Medicine; Visit Provider Emergency Medicine
DX: D50.9 Iron deficiency anemia, unspecified (principal); N92.0 Excessive and frequent menstruation with regular cycle; E66.9 Obesity, unspecified; Z86.718 Personal history of other venous thrombosis and embolism
CPT/HCPCS: 84703; 85027; 86850; 86900; 86901; 93005; 99283

== ENCOUNTER → 2021-12-13 | Outpatient (CLI) | payer MEDICAID, SELFPAY ==
[2021-12-13 13:50] VITALS: BP 153/97; PULSE 120; RESP 16; TEMP 36.4; O2SAT 96
[2021-12-13] MEDS: 0.9% NaCl Peripheral Flush Adult/Peds IV ×2 (14:05→15:38)
[2021-12-13] MEDS: 0.9% NaCl IVPB Med Flush (250 mL) 15 ML IV (14:05)
[2021-12-13] MEDS: Sodium Ferric Gluconat 125 MG in 0.9% Normal Saline 100 ML 110 MG IV (14:09)
[2021-12-13 15:46] VITALS: BP 155/86; PULSE 84
[2021-12-13 15:56] LABS: Absolute Lymphocyte Count 2.41 X10^3/uL (0.83-4.51); Absolute Neutrophil Count 4.3 X10^3/uL (2.0-7.7); Basophil# 0.04 X10^3/uL; Basophil% 0.5 % (0-1); Eosinophils% 2.6 % (0-5); Hematocrit 24.8 % (37-47); Hemoglobin 7.1 g/dL (12.0-15.0); Lymphocyte # 2.41 X10^3/ul (0.83-4.51); Lymphocyte % 31.5 % (19-41); Mean Corp Hgb Conc 28.6 g/dL (32-36); Mean Corpuscular Hgb 17.1 pg (27.0-32.0); Mean Corpuscular Volume 59.9 fL (81-99); Monocyte# 0.67 X10^3/uL; Monocyte% 8.7 % (0-10); NRBC Flagged by Analyzer 0 % (0-5); Neutrophil # 4.32 X10^3/uL (2.7-7.7); Neutrophil % 56.4 % (47-70); POSITIVE MORPHOLOGY YES; Platelet Count 399 K/mm3 (150-450); RBC Distribution Width CV 20.3 % (11.6-14.6); RBC Distribution Width SD 42.2 fl (35.1-43.9); Red Blood Count 4.14 M/mm3 (4.2-5.4); White Blood Count 7.7 K/mm3 (4.4-11.0)
[2021-12-13 15:59] LABS: Differential Indicated SCAN CRITERIA MET
[2021-12-13 16:10] LABS: Ferritin 2 ng/mL (8-252); Iron 112 ug/dL (50-170); Iron Binding Capacity,Total 512 ug/dL (250-450)
[2021-12-13 16:40] LABS: Differential Comment SCANNED
[2021-12-13 16:41] LABS: Anisocytosis 2+; Hypochromasia 1+; Microcytosis 2+; Polychromasia 1+
[2021-12-13 16:42] LABS: Ovalocyte RARE
== END | disposition home or self-care (01) ==
LOC: MEDOUTP 13:29
PROVIDERS: PCP Internal Medicine; Referring Provider Internal Medicine; Visit Provider Internal Medicine
DX: D50.0 Iron deficiency anemia secondary to blood loss (chronic) (principal)
CPT/HCPCS: 96365; 82728; 83540; 83550; 85025; J7050; A4216; J2916

== ENCOUNTER → 2021-12-19 | Outpatient (CLI) | payer MEDICAID, SELFPAY ==
[2021-12-19 15:22] LABS: Absolute Lymphocyte Count 3.16 X10^3/uL (0.83-4.51); Absolute Neutrophil Count 4.1 X10^3/uL (2.0-7.7); Basophil# 0.03 X10^3/uL; Basophil% 0.4 % (0-1); Eosinophil# 0.19 X10^3/uL; Eosinophils% 2.3 % (0-5); Hematocrit 26.3 % (37-47); Hemoglobin 7.2 g/dL (12.0-15.0); Lymphocyte # 3.16 X10^3/ul (0.83-4.51); Lymphocyte % 37.8 % (19-41); Mean Corp Hgb Conc 27.4 g/dL (32-36); Mean Corpuscular Hgb 16.9 pg (27.0-32.0); Mean Corpuscular Volume 61.6 fL (81-99); Mean Platelet Vol. 10.3 fl (6.2-12.0); Monocyte# 0.87 X10^3/uL; Monocyte% 10.4 % (0-10); NRBC Flagged by Analyzer 0 % (0-5); Neutrophil # 4.07 X10^3/uL (2.7-7.7); Neutrophil % 48.7 % (47-70); POSITIVE MORPHOLOGY YES; Platelet Count 392 K/mm3 (150-450); RBC Distribution Width CV 23.1 % (11.6-14.6); RBC Distribution Width SD 44.7 fl (35.1-43.9); Red Blood Count 4.27 M/mm3 (4.2-5.4); White Blood Count 8.4 K/mm3 (4.4-11.0)
[2021-12-19 15:33] LABS: Differential Indicated SCAN CRITERIA MET
[2021-12-19 15:47] LABS: Ferritin 39 ng/mL (8-252); Iron 25 ug/dL (50-170); Iron Binding Capacity,Total 510 ug/dL (250-450); PERCENT IRON SATURATION 4.9 % (15.0-55.0)
[2021-12-19 15:56] LABS: Anisocytosis 1+; Differential Comment SCANNED; Hypochromasia 1+
== END | disposition home or self-care (01) ==
LOC: BIMLAB 08:33
PROVIDERS: PCP Internal Medicine; Visit Provider Internal Medicine
DX: D50.0 Iron deficiency anemia secondary to blood loss (chronic) (principal)
CPT/HCPCS: 36415; 82728; 83540; 83550; 85025

== ENCOUNTER → 2022-01-11 | Outpatient (CLI) | payer MEDICAID, SELFPAY ==
[2022-01-18 14:52] LABS: HPV APTIMA, High Risk Negative (Negative)
== END | disposition home or self-care (01) ==
PROVIDERS: PCP Internal Medicine; Visit Provider Obstetrics & Gynecology
DX: Z12.4 Encounter for screening for malignant neoplasm of cervix (principal)
CPT/HCPCS: 87624; 88175; G0145

== ENCOUNTER 2022-03-18 14:37 | Emergency (ER) | payer MEDICAID, SELFPAY ==
[2022-03-18 14:38] VITALS: BP 163/116; PULSE 87; RESP 18; TEMP 37; O2SAT 100; BMI 43.8
--- NOTE | 2022-03-18 14:45 | VDLE_ITS ---
Reason For Study: Pain RIGHT GSV is normal. CFV is compressible, spontaneous, phasic, competent and demonstrates normal augmentation. FV is compressible, spontaneous, phasic, competent and demonstrates normal augmentation. POP V is compressible, spontaneous, phasic, competent and demonstrates normal augmentation. T/P Trunk is compressible. PTV is compressible. RT PerV is compressible. Procedure This is a venous duplex using B-mode, color flow and spectral Doppler. Exam performed in department. A preliminary report was called and/or faxed to [facility]. VL/Venous Duplex US, Unilateral Interpretation Summary There is no evidence of right lower extremity deep vein thrombosis. Right great saphenous vein appears patent and compressible segmentally. Ordering Physician: Deniz Lagunas Referring Physician: Catalina Nicole Performed By: Serentiy Molina RVT
--- NOTE | 2022-03-18 17:03 | EDS_ITS ---
HPI History of Present Illness Chief Complaint: Lower Extremity Injury Narrative Narrative: Patient presents with right thigh pain after fall. However the pain feels, like when she had a DVT. She has no fevers chills cough congestion she has no chest pain or shortness of breath. She had a small fall while tripping into her dog [facility] Medical History Abnormal Pap smear of cervix Anemia DVT (deep venous thrombosis) Headache, migraine Murmur Polycystic ovaries Home Medications geritol liquid PO 11/19/21 [History Last Taken Unknown] lisinopril 5 mg tablet 5 mg PO BID #60 tabs 02/07/22 [Rx Last Taken Unknown] naltrexone 8 mg-bupropion 90 mg tablet,extended release (Contrave) 1 tab PO QAM AND QPM #70 tabs 02/13/22 [Rx Last Taken Unknown] norethindrone acetate 5 mg tablet (Aygestin) 5 mg PO .COMPLEX #60 tabs 03/08/22 [Rx Last Taken Unknown] Allergy/AdvReac Type Severity Reaction Status Date / Time morphine AdvReac Itching Verified 02/27/22 14:36 sulfamethoxazole AdvReac Itching Verified 02/27/22 14:36 [From Bactrim] trimethoprim [From Bactrim] AdvReac Itching Verified 02/27/22 14:36 Family History Grandmother Breast cancer Grandfather Cancer lung Throat cancer Mental disorder schizophrenia Mother Alcoholism Autoimmune disorder RA and fibromyalgia Father Alcoholism Aunt Cervical cancer Melanoma Ovarian cancer Surgical History delivery delivered History of foot surgery Social History household members: significant other and children current occupational status: employed current occupation: casualty insurance claim adjuster Smoking Status: Never smoker Electronic Cigarette Use: not used alcohol intake: never substance use type: does not use caffeine: Yes what type of physical activity do you participate in: aerobics frequency: 5-6 times per week seatbelt use: always do you feel safe at home: Yes 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 ROS ED ROS Narrative Past medical history: none Medications: Reviewed Social history: Noncontributory Review of systems: Cardiovascular: No chest pain Respiratory: No shortness of breath Musculoskeletal: Back pain as in HPI Skin: No abrasions or lacerations Neurological: No weakness or paresthesias Hematologic: No easy bleeding or easy bruising EXAM Physical Exam Narrative Exam Narrative: Physical exam General: Well nourished, Well developed, No Acute Distress Head: Normocephalic, Atraumatic Cardiovascular: Regular rate, Regular rhythm Respiratory: No distress, CTA bilaterally Abdomen: Soft, Nontender, Nondistended Back: Nontender, Normal Inspection. Negative for: CVA tenderness Extremities: Pain over the right quadricep region. No erythema or calor or any signs of rash. Skin: Normal color, No rash Neurological: Alert, Normal Strength, Normal Sensation Psychological: Normal affect Const Vital Signs: 03/18/22 14:38 Temperature 98.6 F Temperature Source Temporal Pulse Rate 87 Respiratory Rate 18 Blood Pressure 163/116 H Blood Pressure Mean 131 Pulse Ox 100 Oxygen Delivery Method Room Air MDM MDM MDM Narrative Medical decision making narrative: Ultrasound is negative. Patient appears well. I will discharge her with re assurance. She likely strained her quadricep muscle. Discharge Plan Triage Chief Complaint: Lower Extremity Injury ED Provider: Deniz Lagunas Dx/Rx/DC Orders Clinical Impression: Muscle strain, Acute leg pain Instructions: ED Myalgias Prescriptions: No Action geritol liquid PO lisinopril 5 mg tablet 5 mg PO BID Qty: 60 12RF Contrave 8-90 mg tablet extended release 1 tab PO QAM AND QPM Qty: 70 0RF Rx Instructions: take 1 tab q am x 1 wk, then 1 tab bid x 1 week, then 2 tabs q am and 1 tab q pm x 1 week, then 2 tabs in am and 2 tabs in 2pm BMI 45.8 norethindrone acetate [Aygestin] 5 mg tablet 5 mg PO .COMPLEX Qty: 60 0RF Rx Instructions: 5 mg PO tid until bleeding stops X 24 hr then bid to finish Rx Primary Care Provider: Catalina Nicole Referrals: Catalina Nicole MD [Primary Care Provider] - 3-5 Days
[2022-03-18 17:22] VITALS: BP 145/93; PULSE 76; RESP 14; O2SAT 99
== END 2022-03-18 17:23 | disposition home or self-care (01) ==
PROVIDERS: Emergency Provider Emergency Medicine; PCP Internal Medicine; Visit Provider Emergency Medicine
DX: S76.911A Strain of unspecified muscles, fascia and tendons at thigh level, right thigh, initial encounter (principal); M79.651 Pain in right thigh; W19.XXXA Unspecified fall, initial encounter; Z86.718 Personal history of other venous thrombosis and embolism
CPT/HCPCS: 93971; 99282

== ENCOUNTER 2022-05-25 18:09 | Emergency (ER) | payer MEDICAID, SELFPAY ==
[2022-05-25 18:10] VITALS: BP 149/98; PULSE 130; RESP 18; TEMP 35.9; O2SAT 100; BMI 43.8
[2022-05-25 18:21] VITALS: BP 149/98; PULSE 130; RESP 18; TEMP 35.9; O2SAT 100
--- NOTE | 2022-05-25 18:27 | CT_ITS ---
EXAM: CT NECK WITH INTRAVENOUS CONTRAST CLINICAL INDICATION: unable to swallow and sore throat TECHNIQUE: Helically acquired images were obtained of the neck with intravenous contrast. This CT exam was performed using one or more of the following dose reduction techniques: automated exposure control, adjustment of the mA and/or kV according to patient size, and/or use of iterative reconstruction technique. This report was created using [employer] report generation technology. CONTRAST: IV 75mL Isovue-370 COMPARISON: None. FINDINGS: NASOPHARYNX: Unremarkable. SUPRAHYOID NECK: Tonsillar tissue is enlarged with minimal striations which may represent tonsillitis. There is no abscess or fluid collection. INFRAHYOID NECK: Unremarkable. The larynx, hypopharynx and supraglottis are unremarkable. SUBMANDIBULAR/PAROTID GLANDS: Unremarkable. Glands are normal in size. THYROID: Unremarkable. No enlarged or calcified nodules. BONES/JOINTS: No acute fracture. SOFT TISSUES: Unremarkable. VASCULATURE: No acute findings. LYMPH NODES: There are enlarged lymph nodes bilaterally largest node on the left measuring 2.2 x 1.9 cm in largest node on the right measuring 2.1 x 1.9 cm. LUNG APICES: Unremarkable as visualized. CT/Soft Tissue Neck WITH Contrast IMPRESSION: Enlarged tonsils with minimal striated density compatible with tonsillitis. There is no abscess or fluid collection. There is associated adenopathy which is likely reactive or inflammatory. Electronically Signed: Edison Mendieta MD at 19:34 [facility] ,
--- NOTE | 2022-05-25 18:29 | EX.ED.VIS.UR ---
HPI HPI - URI History of Present Illness Chief Complaint: Sore Throat Detail of Chief Complaint: History of sore throat with difficulty swallowing. Feels dehydrated. Informant: patient Onset/Context/Timing Onset: Days Context: Gradual Onset Timing: Continuous Current Severity: Mild Maximum Severity: Mild Associated Symptoms Associated Symptoms: Positive for Myalgias; Negative for Nasal Congestion, Headache, Sinus Pressure, Nausea, Vomiting, Diarrhea, Shortness of Breath, Chest Pain, Nonproductive cough, Hemoptysis or Productive Cough Narrative Narrative: 36-year-old female history of anemia. She has had a fever and sore throat for the last 2 to 3 days. Denies any nausea vomiting diarrhea. No cough. Difficulty swallowing and feels dehydrated. Prior similar symptoms: Yes Recent Illness/Hospitalization: No ROS ROS ED ROS Narrative Fever, sore throat and body aches. Review of Systems ROS Unobtainable: Denies due to encephalopathy Constitutional Constitutional ED: Reports fever(s); Denies chills Eyes Eyes: Denies blurry vision ENT ENT ED: Reports sore throat; Denies ear pain or rhinorrhea Cardiovascular Cardiovascular: Denies chest pain Respiratory/Chest Respiratory/Chest: Denies cough or dyspnea Gastrointestinal Gastrointestinal: Denies abdominal pain, constipation, diarrhea, melena, nausea or vomiting Genitourinary Genitourinary ED: Denies dysuria or hematuria Musculoskeletal Musculoskeletal: Reports myalgias; Denies arthralgias or back pain Integumentary Denies abscess Neurologic Neurologic: Denies headache(s) Psychiatric Psychiatric: Denies anxiety Endocrine Endocrinology: Denies cold intolerance Hematologic/Lymphatic Hematologic/Lymphatic: Denies easy bleeding Allergic/Immunologic Allergic/Immunologic ED: Denies mouth swelling or tongue swelling [facility] Medical History Abnormal Pap smear of cervix Anemia DVT (deep venous thrombosis) Headache, migraine Murmur Polycystic ovaries Home Medications geritol liquid PO 11/19/21 [History Last Taken Unknown] norethindrone acetate 5 mg tablet (Aygestin) 5 mg PO .COMPLEX #60 tabs 04/12/22 [Rx Last Taken Unknown] amoxicillin 500 mg capsule 500 mg PO TID 10 days #30 caps 05/25/22 [Rx Last Taken Unknown] Allergy/AdvReac Type Severity Reaction Status Date / Time lisinopril AdvReac Intermediate felt weird Verified 05/25/22 18:10 morphine AdvReac Itching Verified 05/25/22 18:10 sulfamethoxazole AdvReac Itching Verified 05/25/22 18:10 [From Bactrim] trimethoprim [From Bactrim] AdvReac Itching Verified 05/25/22 18:10 Family History Grandmother Breast cancer Grandfather Cancer lung Throat cancer Mental disorder schizophrenia Mother Alcoholism Autoimmune disorder RA and fibromyalgia Father Alcoholism Aunt Cervical cancer Melanoma Ovarian cancer Surgical History delivery delivered History of foot surgery Social History household members: significant other and children current occupational status: employed current occupation: health insurance sales agent Smoking Status: Never smoker Electronic Cigarette Use: not used alcohol intake: never substance use type: does not use caffeine: Yes what type of physical activity do you participate in: aerobics frequency: 5-6 times per week seatbelt use: always do you feel safe at home: Yes additional social history: Single- Insurance Packet Digital EXAM Physical Exam Narrative Exam Narrative: 36-year-old female no acute distress. Vital signs are stable and afebrile. H EENT exam shows posterior pharyngeal erythema exudate and bilateral tonsillar and soft palate swelling. Dry mucous membranes. No obvious peritonsillar abscess. Neck cervical lymphadenopathy bilaterally. Tenderness. Trachea midline. Lungs clear to auscultation bilaterally. Heart regular rhythm rate about 130 no murmur. Tachycardic. Abdomen soft nontender. No axillary or inguinal lymphadenopathy. Back nontender. Skin no rashes. Moving all 4 extremities. Neurologically awake and alert with no focal motor deficits. Const Vital Signs: 05/25/22 18:10 05/25/22 18:18 05/25/22 18:21 Temperature 96.6 F L 96.6 F L Temperature Source Temporal Temporal Pulse Rate 130 H 130 H Respiratory Rate 18 18 Respiratory Effort Short of Breath Respiratory Depth Normal Respiratory Pattern Normal Blood Pressure 149/98 H 149/98 H Blood Pressure Mean 115 115 Pulse Ox 100 100 Oxygen Delivery Method Room Air Room Air Positive well nourished, well developed and obese; Negative for cachectic or contractures General Appearance ED: well developed and NAD; Negative for cachectic, contractures, cyanotic, diaphoretic or pallor Nutritional Appearance: obese; Negative for cachectic HEENT Reports dry mucous membranes; Denies moist mucous membranes normocephalic and atraumatic; Negative for scalp tenderness Face and Sinus: Negative for sinus tenderness Mouth ED: Yes dry mucous membranes Mouth: dry mucous membranes Teeth and Gingiva: Negative for caries Throat: posterior oropharynx abnormal Positive for edema, erythema and exudates; Negative for laceration or foreign body; Negative for posterior oropharynx normal Eyes PERRL and EOMs intact bilaterally General Eye ED: Negative for pale conjunctiva, scleral icterus or other Neck No no lymphadenopathy, supple, no meningeal signs and no JVD General: lymphadenopathy; Negative for anterior neck swelling Resp normal respiratory effort and clear to auscultation bilaterally Effort and Inspection: Negative for retractions Auscultation: Negative for rales, rhonchi or wheezes Cardio S1 normal heart sound, S2 normal heart sound and no murmurs Rate: tachycardic; Negative for regular rate or bradycardia Rhythm: regular rhythm GI non-tender, non-distended and no masses Inspection: Negative for abdominal distention Auscultation: normoactive bowel sounds Palpation: soft; Negative for tender or guarding Back/Spine no CVA tenderness and normal ROM General Back: Negative for CVA tenderness Cervical Spine: Negative for cervical spine tenderness Thoracic Spine / Upper Back: Negative for thoracic spinal tenderness Lumbar Spine / Lower Back: Negative for lumbar spinal tenderness Sacrum: Negative for tenderness Extremity normal to inspection and full ROM General Extremety ED: Negative for tenderness Neuro oriented x3 Sensorium / Orientation: alert, oriented to person, oriented to place and oriented to time; Negative for orientation impaired, lethargic or stuporous Motor Exam: strength 5/5 throughout Psych mental status grossly normal Appearance: Negative for other Attitude: No agitated Mood & Affect: Negative for depressed, anxious or tearful Skin General Skin Exam: Negative for jaundice or pallor Lesions: no lesions Rashes: no rashes Trauma: Negative for abrasion or laceration MDM MDM MDM Narrative Medical decision making narrative: 36-year-old female sore throat for several days most likely this is strep throat. She does have significant posterior pharyngeal swelling and erythema rule out peritonsillar abscess. Screening labs to be obtained. CT soft tissue of her neck. She will be treated with IV fluids clinically she looks dehydrated and has been having trouble swallowing. Repeat exam at 8:30 PM patient doing well. She has received a liter of fluid. She and I went over all of her test results including labs and her positive rapid strep and a negative CAT scan. She is comfortable being discharged home. She will be given a dose of amoxicillin here 500 mg p.o. And a prescription amoxicillin 500 3 times daily will get filled and sent home with her. Warm salt water gargling. Chloraseptic spray. Tylenol Motrin as needed. Lab Data Attestation: I reviewed the patient's lab results. Lab results narrative: CBC shows an elevated white count of 23.2. H&H 11.1 and 37. History of anemia. Platelets 332. Electrolytes show sodium 135. Gap of 8. BUN of 10 creatinine 1.31. Glucose 104. [place] screen negative. Rapid strep is positive for strep throat. CAT scan shows no peritonsillar abscess. Labs: Laboratory Results - last 24 hr 05/25/22 05/25/22 05/25/22 18:45 18:45 18:45 WBC 23.2 H RBC 5.63 H Hgb 11.1 L Hct 37.2 MCV 66.1 L MCH 19.7 L MCHC 29.8 L RDW Std Deviation 62.4 H RDW Coeff of Schuyler 27.4 H Plt Count 332 MPV 9.5 Immature Gran % (Auto) 0.600 Neut % (Auto) 83.9 H Lymph % (Auto) 7.1 L [place] % (Auto) 7.9 Eos % (Auto) 0.2 Baso % (Auto) 0.3 Absolute Neuts (auto) 19.5 H Absolute Lymphs (auto) 1.64 Nucleated RBC % 0 Differential Comment SCANNED Diff Path Review May foll Hypochromasia 1+ Anisocytosis 2+ Target Cells 1+ Sodium 135 L Potassium 3.5 Chloride 103 Carbon Dioxide 24.0 Anion Gap 8 BUN 10 Creatinine 1.31 H Estim Creat Clear Calc 58.29 Est GFR (MDRD) Af Amer 59 L Est GFR (MDRD) Non-Af 49 L BUN/Creatinine Ratio 7.6 L Glucose 104 Calcium 9.4 Monoscreen Negative Radiography Diagnostic Testing: Clinical Impression(s) from Imaging Studies Soft Tissue Neck CT 05/25/22 18:27 IMPRESSION: Enlarged tonsils with minimal striated density compatible with tonsillitis. There is no abscess or fluid collection. There is associated adenopathy which is likely reactive or inflammatory. Electronically Signed: Edison Mendieta MD at 19:34 EST , Discharge Plan Triage Chief Complaint: Sore Throat Other Complaint: Fever Shortness of Breath ED Provider: Dirk Crane Dx/Rx/DC Orders Clinical Impression: Strep throat Instructions: Strep Throat Prescriptions: New amoxicillin 500 mg capsule 500 mg PO TID 10 Days Qty: 30 0RF No Action geritol liquid PO norethindrone acetate [Aygestin] 5 mg tablet 5 mg PO .COMPLEX Qty: 60 0RF Rx Instructions: 5 mg PO tid until bleeding stops X 24 hr then bid to finish Rx Primary Care Provider: Catalina Nicole Referrals: Catalina Nicole MD [Primary Care Provider] - 1 Week if not improving Activity Restrictions/Additional Instructions: Warm salt water gargling. Chloraseptic spray. You have strep throat. Plenty of fluids and rest. Gatorade and water. If not you get dehydrated. Motrin and Tylenol for pain and fever. Follow-up with your doctor if not improving or return if worse. The antibiotic amoxicillin 1 pill 3 times a day for the next 10 days. Disposition Disposition: Home, Self Care
[2022-05-25] MEDS: 0.9% Normal Saline 1,000 ML 1000 ML IV (18:54)
[2022-05-25 18:57] LABS: Absolute Lymphocyte Count 1.64 X10^3/uL (0.83-4.51); Absolute Neutrophil Count 19.5 X10^3/uL (2.0-7.7); Basophil# 0.07 X10^3/uL; Basophil% 0.3 % (0-1); Eosinophil# 0.05 X10^3/uL; Eosinophils% 0.2 % (0-5); Hematocrit 37.2 % (37-47); Hemoglobin 11.1 g/dL (12.0-15.0); Lymphocyte # 1.64 X10^3/ul (0.83-4.51); Lymphocyte % 7.1 % (19-41); Mean Corp Hgb Conc 29.8 g/dL (32-36); Mean Corpuscular Hgb 19.7 pg (27.0-32.0); Mean Corpuscular Volume 66.1 fL (81-99); Mean Platelet Vol. 9.5 fl (6.2-12.0); Monocyte# 1.84 X10^3/uL; Monocyte% 7.9 % (0-10); NRBC Flagged by Analyzer 0 % (0-5); Neutrophil # 19.48 X10^3/uL (2.7-7.7); Neutrophil % 83.9 % (47-70); POSITIVE DIFFERENTIAL YES; POSITIVE MORPHOLOGY YES; Platelet Count 332 K/mm3 (150-450); RBC Distribution Width CV 27.4 % (11.6-14.6); RBC Distribution Width SD 62.4 fl (35.1-43.9); Red Blood Count 5.63 M/mm3 (4.2-5.4); White Blood Count 23.2 K/mm3 (4.4-11.0)
[2022-05-25 19:01] LABS: Differential Indicated SCAN CRITERIA MET
[2022-05-25 19:10] LABS: Anion Gap 8 (5-15); BUN 10 mg/dL (7-18); BUN/Creat Ratio 7.6 RATIO (10-20); Calcium,Total 9.4 mg/dL (8.5-10.1); Chloride 103 mmol/L (98-107); Creatinine, Serum 1.31 mg/dL (0.55-1.02); EST Glomerular Filtration Rate 49 mL/min (>60); Est Glom Filt Rate - Afr Amer 59 mL/min (>60); Estimated Creatinine Clearance 58.29 ml/min; Glucose 104 mg/dL (74-106); Potassium 3.5 mmol/L (3.5-5.1); Sodium Level 135 mmol/L (136-145)
[2022-05-25 19:18] LABS: Internal QC Validated? YES +Cl - CLEAR BKGD; Monotest Negative (Negative)
[2022-05-25 19:38] LABS: Anisocytosis 2+; Differential Comment SCANNED; Hypochromasia 1+
[2022-05-25 19:39] LABS: Target Cells 1+
[2022-05-25] MEDS: AMOXICILLIN 500 MG CAPSULE PO (20:48)
[2022-05-28 09:51] LABS: Pathologist Review Reviewed
== END 2022-05-25 20:52 | disposition home or self-care (01) ==
PROVIDERS: Emergency Provider Emergency Medicine; PCP Internal Medicine; Visit Provider Emergency Medicine
DX: J02.0 Streptococcal pharyngitis (principal); E66.9 Obesity, unspecified; Z86.718 Personal history of other venous thrombosis and embolism
CPT/HCPCS: 70491; 80048; 85025; 86308; 87077; 87880; 96360; 96361; 99284; J7030; Q9967; A4216

== ENCOUNTER 2022-05-28 03:47 | Observation (INO) | payer MEDICAID, SELFPAY ==
[2022-05-28] VITALS (9 sets, daily range): BP systolic 140–176; BP diastolic 90–105; PULSE 81–102; RESP 16–20; TEMP 36.1–37.2; O2SAT 93–100; BMI 46.1; BMI 45.6
--- NOTE | 2022-05-28 04:53 | EKG12_ITS ---
Test Reason : DYSRHYTHMIA Blood Pressure : / mmHG Vent. Rate : 094 BPM Atrial Rate : 094 BPM P-R Int : 186 ms QRS Dur : 084 ms QT Int : 350 ms P-R-T Axes : 044 062 024 degrees QTc Int : 437 ms Normal sinus rhythm Normal ECG Confirmed by EDGARDO MARTINO, ANGELA ([id number]), video news editor AHNNAH MALLOY ([id number]) on 05/29/2022 9:12:36 AM Referred By: LORI Confirmed By:ANGELA RENYOSO MD
--- NOTE | 2022-05-28 04:53 | CT_ITS ---
STUDY: CTA CHEST REASON FOR EXAM: Female, 36 years old. SOB, chest pain, hx of DVT RADIATION DOSAGE (If Supplied By Facility): CTDIvol = ( 40.74 ) mGy, DLP = ( 1351.33 ) mGycm TECHNIQUE: The examination was performed with the intravenous administration of IV 100mL Isovue-370. Post-processing of the angiographic images was performed, with multiplanar reformation and 3D reconstruction. Individualized dose optimization techniques were used for this CT. COMPARISON: October 27, 2018 CT angiogram chest FINDINGS: There is limited enhancement of the main pulmonary artery and right and left pulmonary arteries. There is limited enhancement of the bilateral peripheral pulmonary arteries. There is no demonstrated pulmonary embolism. Normal thoracic aorta and visualized great vessels. There is no demonstrated aortic dissection. Normal heart and pericardium. Normal mediastinum. Normal hilar regions. Normal visualized trachea and bronchi. Is a small focus of consolidation within the left lung base. There is a small smudgy nodular density within the left upper lobe measuring 9 mm. There is a small focal smudgy nodular density possible lucent center measuring 1.0 cm in the right lung base. Normal pleura. Normal chest wall structures. There are degenerative changes of thoracic spine. Normal visualized upper abdomen. CT/CTA Chest W/WO Contrast IMPRESSION: Contrast bolus is limited to evaluate for pulmonary embolism in the distal vessels. No visualized centrally located clot. There is artifact of the chest due to the patient''s arms down by her side and superficial metallic leads. Small focus of left lower lobe consolidation suspicious for pneumonia. There is a smudgy nodular density within the left upper lobe which likely represents a small focus of inflammatory change with a similar finding in the right lung base. Recommend correlation with clinical history. On image #80 there is a suggestion of a possible early cavitation. Consider pneumonia possible cavitary pneumonia potentially septic emboli. Recommend follow-up to clearing. Electronically Signed: Chela Easley MD at 5:58 EST ,
--- NOTE | 2022-05-28 04:53 | CT_ITS ---
EXAM: CT NECK WITH INTRAVENOUS CONTRAST CLINICAL INDICATION: left sided neck pain, recent + strep TECHNIQUE: Helically acquired images were obtained of the neck with intravenous contrast. This CT exam was performed using one or more of the following dose reduction techniques: automated exposure control, adjustment of the mA and/or kV according to patient size, and/or use of iterative reconstruction technique. This report was created using [employer] report [employer] technology. CONTRAST: IV 100mL Isovue-370 RADIATION DOSE: CTDIvol = 26.56 mGy, DLP = 685.54 mGy-cm COMPARISON: None. FINDINGS: BRAIN AND EXTRA-AXIAL SPACES: Unremarkable as visualized. No suspicious intracranial findings. NASOPHARYNX: Unremarkable. SUPRAHYOID NECK: Unremarkable. Oropharynx, oral cavity, parapharyngeal space and retropharyngeal space are unremarkable. INFRAHYOID NECK: Unremarkable. The larynx, hypopharynx and supraglottis are unremarkable. SUBMANDIBULAR/PAROTID GLANDS: Unremarkable. Glands are normal in size. THYROID: Unremarkable. No enlarged or calcified nodules. SINUSES: Unremarkable paranasal sinuses. AUDITORY SYSTEM: Well-aerated middle ears and mastoids sinuses. DENTAL: 4 dentition with advanced periodontal disease, multiple periapical lucencies around at least 2 adjacent teeth in the left lateral mandible with large dental caries, small residual root in the left maxilla, multiple small dental caries. BONES/JOINTS: Anterior spondylosis at C4-C6. No acute fracture. SOFT TISSUES: There is mucosal thickening and prominent enlargement of nasopharyngeal soft tissues, uvula and tonsillar tissues without discrete drainable abscess, with narrowing of the oropharyngeal airway. No definite prevertebral-retropharyngeal fluid. VASCULATURE: Patent enhanced carotids and jugular veins. The right internal jugular vein is mildly larger than the left but both are enhanced. LYMPH NODES: Enlarged jugulodigastric lymph nodes bilaterally and additional shotty cervical nodes. No necrotic lymphadenopathy. The right jugulodigastric lymph node is roughly 2.2 cm x 3.2 cm x 2.5 cm, similar mildly smaller appearance on the right. Small submandibular and submental lymph nodes. LUNG APICES: Unremarkable as visualized. CT/Soft Tissue Neck WITH Contrast IMPRESSION: 1. No discrete drainable abscess. 2. Prominent nasopharyngeal and oropharyngeal mucosal thickening, uvula thickening, and tonsillar enhancement and swelling. Narrowing of the oropharyngeal transverse airway diameter. No evidence of significant epiglottis thickening. 3. No retropharyngeal abscess or venous occlusion. 4. Left greater than right cervical adenopathy. Likely reactive. No necrotic lymph nodes. 5. Advanced periodontal disease. Electronically Signed: Lou Mcnair MD at 6:48 EST ,
[2022-05-28] MEDS: 0.9% Normal Saline 1,000 ML 1000 ML IV (05:03)
[2022-05-28] MEDS: Ketorolac 15 MG/ML Vial IV (05:03)
[2022-05-28 05:05] LABS: Absolute Neutrophil Count 6.2 X10^3/uL (2.0-7.7); Basophil# 0.07 X10^3/uL; Basophil% 0.6 % (0-1); Eosinophil# 0.12 X10^3/uL; Hematocrit 34.2 % (37-47); Hemoglobin 10.1 g/dL (12.0-15.0); Lymphocyte % 28.8 % (19-41); Mean Corp Hgb Conc 29.5 g/dL (32-36); Mean Corpuscular Hgb 19.5 pg (27.0-32.0); Mean Corpuscular Volume 65.9 fL (81-99); Monocyte# 1.89 X10^3/uL; NRBC Flagged by Analyzer 0 % (0-5); Neutrophil # 6.24 X10^3/uL (2.7-7.7); Neutrophil % 52.9 % (47-70); POSITIVE DIFFERENTIAL YES; POSITIVE MORPHOLOGY YES; Platelet Count 339 K/mm3 (150-450); RBC Distribution Width CV 27.2 % (11.6-14.6); RBC Distribution Width SD 62.5 fl (35.1-43.9); Red Blood Count 5.19 M/mm3 (4.2-5.4); White Blood Count 11.8 K/mm3 (4.4-11.0)
--- NOTE | 2022-05-28 05:18 | EDS_ITS ---
HPI History of Present Illness Chief Complaint: Chest Pain Informant: patient Narrative Narrative: Patient is a 36-year-old female with history of popliteal vein DVT (no longer on anticoagulation), hypertension and recent diagnosis of strep pharyngitis. Patient was diagnosed with strep throat 3 days ago. She has had worse sided left neck pain since Friday. She is prescribed amoxicillin and has been taking it regularly. She continues to have significant throat pain but today she developed left back pain as well as pressure in her chest. She states worsens throughout the day. Is worse when she is laying down. She also has pain and fullness in her left ear. She denies any fever today. She is not having cough but she does have to clear her throat frequently and feels that there is pus draining in the back of her throat. She does feel quite short of breath and has dyspnea on exertion. She notes she did run out of her anti- inflammatories. She came in for further evaluation of the symptoms. Denies any swelling of her legs. Not currently on any control. [facility] Medical History Abnormal Pap smear of cervix Anemia DVT (deep venous thrombosis) Headache, migraine Murmur Polycystic ovaries Home Medications geritol liquid 10 ml PO DAILY Check with primary doctor 11/19/21 [History Last Taken Unknown] amoxicillin 500 mg capsule 500 mg PO TID Check with primary doctor 05/28/22 [History Last Taken Unknown] Allergy/AdvReac Type Severity Reaction Status Date / Time lisinopril AdvReac Intermediate felt weird Verified 05/28/22 03:54 morphine AdvReac Itching Verified 05/28/22 03:54 sulfamethoxazole AdvReac Itching Verified 05/28/22 03:54 [From Bactrim] trimethoprim [From Bactrim] AdvReac Itching Verified 05/28/22 03:54 Family History Grandmother Breast cancer Grandfather Cancer lung Throat cancer Mental disorder schizophrenia Mother Alcoholism Autoimmune disorder RA and fibromyalgia Father Alcoholism Aunt Cervical cancer Melanoma Ovarian cancer Surgical History delivery delivered History of foot surgery Social History household members: significant other and children current occupational status: employed 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 Smoking Status: Never smoker Electronic Cigarette Use: not used alcohol intake: never substance use type: does not use caffeine: Yes what type of physical activity do you participate in: aerobics frequency: 5-6 times per week seatbelt use: always do you feel safe at home: Yes 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 ROS ED Constitutional Constitutional ED: Denies chills or fever(s) Eyes Eyes: Denies blurry vision ENT ENT ED: Reports ear pain left and sore throat; Denies rhinorrhea Cardiovascular Cardiovascular: Reports chest pain and orthopnea; Denies palpitations Respiratory/Chest Respiratory/Chest: Reports cough, dyspnea, dyspnea on exertion and orthopnea Gastrointestinal Gastrointestinal: Denies abdominal pain or nausea Genitourinary Genitourinary ED: Denies dysuria or hematuria Musculoskeletal Musculoskeletal: Reports back pain and neck pain; Denies arthralgias or myalgias Integumentary Denies rash Neurologic Neurologic: Denies headache(s), paresthesias or weakness Psychiatric Psychiatric: Denies anxiety Hematologic/Lymphatic Hematologic/Lymphatic: Denies easy bleeding or easy bruising EXAM Physical Exam Const Vital Signs: 05/28/22 03:48 05/28/22 03:50 05/28/22 04:57 Temperature 97 F L Temperature Source Temporal Pulse Rate 102 H Respiratory Rate 20 H Respiratory Effort Normal Blood Pressure 176/105 H Blood Pressure Mean 128 Pulse Ox 100 Oxygen Delivery Method Room Air Room Air 05/28/22 07:02 05/28/22 07:38 Temperature Temperature Source Pulse Rate 86 Respiratory Rate 18 Respiratory Effort Blood Pressure 143/90 H Blood Pressure Mean 107 Pulse Ox 98 99 Oxygen Delivery Method Room Air Room Air Positive well nourished and well developed General Appearance ED: well developed and NAD HEENT Reports TM's clear and moist mucous membranes HEENT Narrative: Normal nasal mucosa. Patient has bilaterally swollen tonsils that are almost kissing. No obvious abscess appreciated. There is a white film on the tongue. Uvula is midline. No trismus. Normal phonation. Tympanic Membrane ED: Yes TM's clear Eyes PERRL and EOMs intact bilaterally Neck supple Neck Narrative: Lymphadenopathy present, left anterior cervical chain is most prominent. Chest Wall inspection of chest normal and palpation of chest normal Resp normal respiratory effort and clear to auscultation bilaterally Cardio regular rate and no murmurs Rate: tachycardic GI normal to inspection, nondistended, normoactive bowel sounds and non-tender Extremity normal to inspection General Extremety ED: Negative for edema or tenderness General Extremity: Negative for edema Neuro oriented x3 Sensorium / Orientation: alert Motor Exam: Negative for general weakness Psych mental status grossly normal Skin no rashes or lesions noted and no wounds MDM MDM MDM Narrative Medical decision making narrative: Patient is evaluated for left-sided chest and back pain as well as continued sore throat in the setting of recent diagnosis of strep pharyngitis. Patient's been compliant with her amoxicillin. On exam patient has some mild dyspnea on exertion/conversational dyspnea and is hypertensive/tachycardic upon arrival. She is currently afebrile. She does have bilateral tonsillar enlargement but no obvious signs of peritonsillar abscess. She does not have any trismus. Her uvula is midline. I do not think there is an emergent airway compromise at this point however of peritonsillar/retropharyngeal abscess is on the differential as well as Lemierre's syndrome, pulmonary emboli and pneumonia/pleurisy as the cause of her chest and back pain. Patient has a mild leukocytosis of 11.8 which is actually downtrending from her prior ER visit. She is mildly anemic with a hemoglobin 10.1 however this is stable and patient appears to have a history of iron deficiency anemia. This anemia today is microcytic.Patient's creatinine is mildly elevated 1.17 however this appears to be at her baseline. Potassium mildly low at 3.3 and sodium of 135. Patient's high-sensitivity troponin is 5. Do not think her pain is cardiac in nature and she does not have EKG changes that are ischemic. Given abnormal high since he troponin I think this rules out ACS. CT soft tissue neck ordered which shows no discrete drainable abscess but does show prominent nasopharyngeal and oropharyngeal mucosal thickening, uvula thickening and tonsillar enhancement and swelling as well as narrowing of the oropharyngeal transverse airway diameter. No evidence of significant epiglottis thickening. No signs of retropharyngeal abscess or venous occlusion and she does have left greater than right cervical adenopathy which is likely reactive. There is advanced peritonsillar disease which patient is aware of. CTA of the chest shows a small focus of left lower lobe consolidation suspicious for pneumonia however rather could be suggestion of possible early cavitation as well as potentially septic emboli. Case is discussed with hospitalist as well as critical care/pulmonology medicine on-call. Dr. Cummings recommended widening antibiotic spectrum but states he would not do any bronchoscopy at this time and would likely does repeat CT imaging. Patient is ambulated emergency room and become symptomatic and desaturates to 74%. She does rebound quickly once resting. Given her hypoxia as well as CT findings patient be admitted. Blood cultures are obtained and she started on IV Zosyn. Patient is agreeable with this plan of care. She remains hemodynamically stable at this time. Lab Data Attestation: I reviewed the patient's lab results. Labs: Laboratory Results - last 24 hr 05/28/22 05/28/22 04:00 04:00 WBC 11.8 H RBC 5.19 Hgb 10.1 L Hct 34.2 L MCV 65.9 L MCH 19.5 L MCHC 29.5 L RDW Std Deviation 62.5 H RDW Coeff of Schuyler 27.2 H Plt Count 339 Immature Gran % (Auto) 0.700 Neut % (Auto) 52.9 Lymph % (Auto) 28.8 [place] % (Auto) 16.0 H Eos % (Auto) 1.0 Baso % (Auto) 0.6 Absolute Neuts (auto) 6.2 Absolute Lymphs (auto) 3.40 Nucleated RBC % 0 Diff Path Review May foll Anisocytosis 2+ Microcytosis 2+ Sodium 135 L Potassium 3.3 L Chloride 101 Carbon Dioxide 26.0 Anion Gap 8 BUN 11 Creatinine 1.17 H Estim Creat Clear Calc 62.83 Est GFR (MDRD) Af Amer 67 Est GFR (MDRD) Non-Af 56 L BUN/Creatinine Ratio 9.4 L Glucose 102 Calcium 9.3 Troponin I High Sens 5 Radiography Diagnostic Testing: Clinical Impression(s) from Imaging Studies Chest CTA 05/28/22 04:53 IMPRESSION: Contrast bolus is limited to evaluate for pulmonary embolism in the distal vessels. No visualized centrally located clot. There is artifact of the chest due to the patient''s arms down by her side and superficial metallic leads. Small focus of left lower lobe consolidation suspicious for pneumonia. There is a smudgy nodular density within the left upper lobe which likely represents a small focus of inflammatory change with a similar finding in the right lung base. Recommend correlation with clinical history. On image #80 there is a suggestion of a possible early cavitation. Consider pneumonia possible cavitary pneumonia potentially septic emboli. Recommend follow-up to clearing. Electronically Signed: Chela Easley MD at 5:58 EST , Soft Tissue Neck CT 05/28/22 04:53 IMPRESSION: 1. No discrete drainable abscess. 2. Prominent nasopharyngeal and oropharyngeal mucosal thickening, uvula thickening, and tonsillar enhancement and swelling. Narrowing of the oropharyngeal transverse airway diameter. No evidence of significant epiglottis thickening. 3. No retropharyngeal abscess or venous occlusion. 4. Left greater than right cervical adenopathy. Likely reactive. No necrotic lymph nodes. 5. Advanced periodontal disease. Electronically Signed: Lou Mcnair MD at 6:48 EST , Rhythm Strip Rhythm Strip: Sinus Rhythm Rate: 94 Ectopy: None EKG Initial EKG: Attestation: I personally reviewed and interpreted this EKG as follows: Interpretation: Sinus Rhythm Comments: Normal sinus rhythm at a rate of 94 bpm Normal axis Normal intervals Normal ST segments No change prior to prior EKG on 11/28/2021 Discharge Plan Dx/Rx/DC Orders Clinical Impression: Pneumonia involving left lung, Strep throat, Hypertension Disposition Disposition: Acute Care Hospital [facility] Discharge Date/Time: 05/28/22 09:33
[2022-05-28 05:23] LABS: Anion Gap 8 (5-15); BUN 11 mg/dL (7-18); BUN/Creat Ratio 9.4 RATIO (10-20); Calcium,Total 9.3 mg/dL (8.5-10.1); Chloride 101 mmol/L (98-107); Creatinine, Serum 1.17 mg/dL (0.55-1.02); EST Glomerular Filtration Rate 56 mL/min (>60); Est Glom Filt Rate - Afr Amer 67 mL/min (>60); Estimated Creatinine Clearance 62.83 ml/min; Glucose 102 mg/dL (74-106); Potassium 3.3 mmol/L (3.5-5.1); Sodium Level 135 mmol/L (136-145); Troponin-I HS 5 pg/mL (3.0-54.0)
[2022-05-28 05:54] LABS: Differential Indicated SCAN CRITERIA MET
[2022-05-28 05:59] LABS: Anisocytosis 2+; Microcytosis 2+
--- NOTE | 2022-05-28 07:06 | NURSING ---
DR BORRERO FOR DR TORRES
[2022-05-28] MEDS: dexAMETHasone 10 MG/ML Vial IV (07:40)
--- NOTE | 2022-05-28 07:51 | HP.PCM.HOS_ITS ---
HPI - General General Date of Admission: 05/28/22 Date of Service: 05/28/22 Chief Complaint: Shortness of breath on and off since Friday. Left upper and periscapular chest pain HPI Narrative MARY FISH, is a 36 F with comorbidities as listed below including morbid obesity was first seen in ED on 05/27 for fever and sore throat for last 2 to 3 days. Her fever was 103 Fahrenheit as per the patient. She had difficulty swallowing and mild shortness of breath on exertion. CT soft tissue neck at that time showed enlarged tonsillitis, no abscess or fluid collection with reactive lymphadenopathy. She was found to have strep throat and was sent home on amoxicillin. She came back today ED with left periscapular and left anterior chest pain, pleuritic in quality, aggravated by cough or deep breathing. It is more sharp- like pain 3-5/10 in intensity. Patient still has throat pain and mild shortness of breath on exertion. In ED, chest CTA was done which showed small inflammatory nodule, possible pneumonia with suggestion of early cavitation over left lung base. ED physician discussed with the cutter grinder operator and advised IV antibiotic although patient does not have nausea or vomiting but her pulse ox dropped upper 80s on walking [facility] Medical History Abnormal Pap smear of cervix Anemia DVT (deep venous thrombosis) Headache, migraine Murmur Polycystic ovaries Home Medications geritol liquid PO 11/19/21 [History Last Taken Unknown] amoxicillin 500 mg capsule 500 mg PO TID Check with primary doctor 05/28/22 [History Last Taken Unknown] Allergy/AdvReac Type Severity Reaction Status Date / Time lisinopril AdvReac Intermediate felt weird Verified 05/28/22 03:54 morphine AdvReac Itching Verified 05/28/22 03:54 sulfamethoxazole AdvReac Itching Verified 05/28/22 03:54 [From Bactrim] trimethoprim [From Bactrim] AdvReac Itching Verified 05/28/22 03:54 Family History Grandmother Breast cancer Grandfather Cancer lung Throat cancer Mental disorder schizophrenia Mother Alcoholism Autoimmune disorder RA and fibromyalgia Father Alcoholism Aunt Cervical cancer Melanoma Ovarian cancer Surgical History delivery delivered History of foot surgery Social History household members: significant other and children current occupational status: employed current occupation: billing and insurance coordinator Smoking Status: Never smoker Electronic Cigarette Use: not used alcohol intake: never substance use type: does not use caffeine: Yes what type of physical activity do you participate in: aerobics frequency: 5-6 times per week seatbelt use: always do you feel safe at home: Yes 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 ROS Narrative Constitutional: Reports fatigue and weakness, mild dyspnea on exertion HEENT: Mild sore throat and tonsillitis. Reports systems reviewed and no addt'l complaints, except as documented Respiratory/Chest: Denies cough or sputum production. Gastrointestinal: Denies coffee ground emesis, hematemesis or vomiting Genitourinary: Denies burning urination or new urinary tract symptoms Musculoskeletal: Reports joint pain and limited range of motion Neurologic: Denies seizure-like activity skin: No ulcer. No rash Endocrinology: Hypertension. Morbid obesity. Reports systems reviewed and no addt'l complaints, except as documented Hematologic/Lymphatic: Reports systems reviewed and no addt'l complaints, except as documented Rest 14 ROS are negative except as mentioned in HPI Vital Signs Vital Signs Vital Signs: 05/28/22 03:48 05/28/22 03:50 05/28/22 04:57 Temperature 97 F L Temperature Source Temporal Pulse Rate 102 H Respiratory Rate 20 H Respiratory Effort Normal Blood Pressure 176/105 H Blood Pressure Mean 128 Pulse Ox 100 Oxygen Delivery Method Room Air Room Air 05/28/22 07:02 05/28/22 07:38 Temperature Temperature Source Pulse Rate 86 Respiratory Rate 18 Respiratory Effort Blood Pressure 143/90 H Blood Pressure Mean 107 Pulse Ox 98 99 Oxygen Delivery Method Room Air Room Air Weight Weight: 286 lb 2.56 oz Body Mass Index (BMI) 46.1 Physical Exam Narrative Physical exam General: Alert, Oriented x3, Cooperative, morbid obesity BMI 46.2 kg/m? HEENT: Atraumatic, PERRLA, EOMI, Normocephalic Oral: Multiple seizures and premolars dental caries with tartar/gingivitis. No oral ulcer visualized. Deep pharyngeal and tonsils could not be visualized. Neck: Short neck. Supple, No JVD, Negative Carotid Bruits Chest wall/lungs: Noted to produce more tenderness over left periscapular area. Air entry diminished in bilateral lung bases. No crepitation/rhonchi Cardiovascular: Regular rate, Regular Rhythm, Normal S1, Normal S2, systolic murmur over LLSB and cardiac apex Abdomen: Bowel Sounds Present, Soft, Non Tender, Non-Distended : No renal angle tenderness. No suprapubic tenderness. Extremities: No edema, Capillary Refill Less than 3 Seconds Skin: No rashes, No breakdown Musculoskeletal: No Tenderness to Palpation of Joints or Extremities, range of motion intact. Neurological: Cranial nerves II-XII grossly intact, DTR 2+/4 and Symmetrical, Neuro grossly intact Psych/Mental Status: Normal Affect, Appropriate. Results Lab / Micro Data Result Diagrams: 05/28/22 04:00 05/28/22 04:00 Labs: Laboratory Results - last 24 hr 05/28/22 04:00: WBC 11.8 H, RBC 5.19, Hgb 10.1 L, Hct 34.2 L, MCV 65.9 L, MCH 19.5 L, MCHC 29.5 L, RDW Std Deviation 62.5 H, RDW Coeff of Schuyler 27.2 H, Plt Count 339, Immature Gran % (Auto) 0.700, Neut % (Auto) 52.9, Lymph % (Auto) 28.8, [place] % (Auto) 16.0 H, Eos % (Auto) 1.0, Baso % (Auto) 0.6, Absolute Neuts (auto) 6.2, Absolute Lymphs (auto) 3.40, Nucleated RBC % 0, Diff Path Review May foll, Anisocytosis 2+, Microcytosis 2+ 05/28/22 04:00: Sodium 135 L, Potassium 3.3 L, Chloride 101, Carbon Dioxide 26.0, Anion Gap 8, BUN 11, Creatinine 1.17 H, Estim Creat Clear Calc 62.83, Est GFR (MDRD) Af Amer 67, Est GFR (MDRD) Non-Af 56 L, BUN/Creatinine Ratio 9.4 L, Glucose 102, Calcium 9.3, Troponin I High Sens 5 Radiology Impression Chest CTA 05/28/22 04:53 IMPRESSION: Contrast bolus is limited to evaluate for pulmonary embolism in the distal vessels. No visualized centrally located clot. There is artifact of the chest due to the patient''s arms down by her side and superficial metallic leads. Small focus of left lower lobe consolidation suspicious for pneumonia. There is a smudgy nodular density within the left upper lobe which likely represents a small focus of inflammatory change with a similar finding in the right lung base. Recommend correlation with clinical history. On image #80 there is a suggestion of a possible early cavitation. Consider pneumonia possible cavitary pneumonia potentially septic emboli. Recommend follow-up to clearing. Electronically Signed: Chela Easley MD at 5:58 EST , Soft Tissue Neck CT 05/28/22 04:53 IMPRESSION: 1. No discrete drainable abscess. 2. Prominent nasopharyngeal and oropharyngeal mucosal thickening, uvula thickening, and tonsillar enhancement and swelling. Narrowing of the oropharyngeal transverse airway diameter. No evidence of significant epiglottis thickening. 3. No retropharyngeal abscess or venous occlusion. 4. Left greater than right cervical adenopathy. Likely reactive. No necrotic lymph nodes. 5. Advanced periodontal disease. Electronically Signed: Lou Mcnair MD at 6:48 EST , Assessment & Plan Assessment/Plan (1) Pneumonia involving left lung: PLAN: Plan This is a 36-year-old female is being admitted for left-sided pleuritic type chest pain and mild shortness of breath on exertion and CT chest finding of left lung base nodular lesion/pneumonia 1. Left lung base pneumonia with priority of early cavitation: Patient is being admitted MedSurg floor. Patient was a started on amoxicillin on 05/25, she continued to have shortness of breath and left upper chest pain therefore admitted for IV antibiotic Zosyn, probably failure of outpatient medication. Patient herself denies any previous history of severe pneumonia or cavitary lesion or chronic lung disease including COPD emphysema or congenital cardiopulmonary disease. Pneumonia work-up including blood cultures, sputum culture, urinary antigen and respiratory panel ordered. ED physician discussed with cutter grinder operator and advised IV antibiotic. Mild leukocytosis. Mild hyponatremia and hypokalemia: On IV fluid normal saline. Potassium replaced. 2. Chronic murmur, exact characterization and type unclear: She states he has a murmur for long time. 2D echo is ordered to ascertain that there is no vegetation in the valve. Patient was supposed to see Dr. Velázquez on June 03 for evaluation of murmur. 3. Hypertension: BP is 142/94 slightly elevated. Patient not on ant ihypertensive medication. 4. Morbid obesity, chronic iron deficiency anemia, suspected sleep apnea, polycystic ovarian, migraine headache and history of DVT of popliteal vein in the past: These are not active issues. She follows Dr. Lares. H&H 10.1/34%. Platelet count 339,000. VT prophylaxis, high risk due to morbid obesity and history of popliteal vein DVT. Lovenox 40 mg SQ twice daily CODE STATUS full code. Patient does not have advanced directive. Clinical Impression(s) from Imaging Studies Chest CTA 05/28/22 04:53 IMPRESSION: Contrast bolus is limited to evaluate for pulmonary embolism in the distal vessels. No visualized centrally located clot. There is artifact of the chest due to the patient''s arms down by her side and superficial metallic leads. Small focus of left lower lobe consolidation suspicious for pneumonia. There is a smudgy nodular density within the left upper lobe which likely represents a small focus of inflammatory change with a similar finding in the right lung base. Recommend correlation with clinical history. On image #80 there is a suggestion of a possible early cavitation. Consider pneumonia possible cavitary pneumonia potentially septic emboli. Recommend follow-up to clearing. Electronically Signed: Chela Easley MD at 5:58 EST , Soft Tissue Neck CT 05/28/22 04:53 IMPRESSION: 1. No discrete drainable abscess. 2. Prominent nasopharyngeal and oropharyngeal mucosal thickening, uvula thickening, and tonsillar enhancement and swelling. Narrowing of the oropharyngeal transverse airway diameter. No evidence of significant epiglottis thickening. 3. No retropharyngeal abscess or venous occlusion. 4. Left greater than right cervical adenopathy. Likely reactive. No necrotic lymph nodes. 5. Advanced periodontal disease. Electronically Signed: Lou Mcnair MD at 6:48 EST , Laboratory Results 05/28/22 04:00: WBC 11.8 H, RBC 5.19, Hgb 10.1 L, Hct 34.2 L, MCV 65.9 L, MCH 1 9.5 L, MCHC 29.5 L, RDW Std Deviation 62.5 H, RDW Coeff of Schuyler 27.2 H, Plt Count 339, Immature Gran % (Auto) 0.700, Neut % (Auto) 52.9, Lymph % (Auto) 28.8, [place] % (Auto) 16.0 H, Eos % (Auto) 1.0, Baso % (Auto) 0.6, Absolute Neuts (auto) 6.2, Absolute Lymphs (auto) 3.40, Nucleated RBC % 0, Diff Path Review May foll, Anisocytosis 2+, Microcytosis 2+ 05/28/22 04:00: Sodium 135 L, Potassium 3.3 L, Chloride 101, Carbon Dioxide 26.0, Anion Gap 8, BUN 11, Creatinine 1.17 H, Estim Creat Clear Calc 62.83, Est GFR (MDRD) Af Amer 67, Est GFR (MDRD) Non-Af 56 L, BUN/Creatinine Ratio 9.4 L, Glucose 102, Calcium 9.3, Troponin I High Sens 5 Charges/Coding Visit Charges Inpatient E&M: 51846 Init Hosp L3
--- NOTE | 2022-05-28 07:57 | NURSING ---
MED SURG GISSELL PNEUMONIA, HYPOXIA
--- NOTE | 2022-05-28 08:36 | ECHOD_ITS ---
Reason For Study: [facility] Procedure This was a 2D Doppler, Color Flow transthoracic echocardiogram. The exam was of adequate technical quality. Exam performed portable in patient room. Left Ventricle Normal LV size. Left ventricular systolic function is normal. The estimated ejection fraction is 55 %. Diastolic function is indeterminate. No regional wall motion abnormalities noted. Right Ventricle Normal RV size. Normal systolic function. Atria Normal left atrium. Normal right atrium. No doppler evidence for ASD. Bubble contrast study negative for right to left interatrial shunt. Mitral Valve There is no mitral annular calcification. Normal mitral valve. Trivial eccentric mitral valve insufficiency. Tricuspid Valve Normal tricuspid valve. Mild tricuspid valve insufficiency. Unable to estimate RV systolic pressure due to insufficient tricuspid regurgitant envelope. Aortic Valve Trisinus/trileaflet aortic valve. Normal aortic valve. Pulmonic Valve The pulmonic valve is not well visualized. Great Vessels Normal sized aortic root. Pericardium/Pleural No pericardial effusion. Medication Performed a rapid injection of agitated mix of 9 cc saline and 1cc air to assess for atrial septal defect. MMode/2D Measurements & Calculations LVIDd: 5.3 cm IVSd: 0.85 cm Ao root diam: 3.2 cm LVIDs: 3.7 cm LVPWd: 1.0 cm RVDd: 3.3 cm FS: 31.3 % LAV(MOD-sp4): 53.6 ml LVAd ap4: 32.9 cm2 SV(MOD-sp4): 53.9 ml LVLd ap4: 8.3 cm EDV(MOD-sp4): 107.2 ml EDV(sp4-el): 110.1 ml LVAs ap4: 21.1 cm2 LVLs ap4: 7.3 cm ESV(MOD-sp4): 53.3 ml ESV(sp4-el): 52.4 ml EF(MOD-sp4): 50.3 % EF(sp4-el): 52.4 % SV(sp4-el): 57.7 ml LA A4 area: 20.4 cm2 LA dimension(2D): 3.9 cm RA A4 area: 13.9 cm2 Time Measurements MV dec time: 0.18 sec Doppler Measurements & Calculations MV E max junior: 92.7 cm/sec Lat Peak E' Junior: 14.5 cm/sec Med Peak E' Junior: 6.2 cm/sec MV A max junior: 105.4 cm/sec E/E' lat: 6.4 E/E' med: 15.0 MV E/A: 0.88 MV V2 max: 103.1 cm/sec MV dec slope: 527.0 cm/sec2 Ao V2 max: 127.2 cm/sec MV max P.3 mmHg Ao max P.5 mmHg MV V2 mean: 74.4 cm/sec Ao V2 mean: 90.5 cm/sec MV mean P.5 mmHg Ao mean P.7 mmHg MV V2 VTI: 28.0 cm Ao V2 VTI: 25.9 cm AV (velocity ratio): 0.71 LV V1 max: 88.4 cm/sec PA V2 max: 115.8 cm/sec LV V1 max P.1 mmHg PA V2 mean: 66.8 cm/sec LV V1 mean P.8 mmHg LV V1 mean: 62.2 cm/sec LV V1 VTI: 18.5 cm ECHO/Echo Complete Interpretation Summary Left ventricular systolic function is normal. The estimated ejection fraction is 55 %. Trivial eccentric mitral valve insufficiency. Mild tricuspid valve insufficiency. Unable to estimate RV systolic pressure due to insufficient tricuspid regurgita nt envelope. Diastolic function is indeterminate. Ordering Physician: Ruben Watson Referring Physician: LIN CAPONE Performed By: Sharron Sterling RCS
[2022-05-28] MEDS: Enoxaparin 40 MG/0.4 ML Syringe SC ×2 (11:32→22:50)
[2022-05-28] MEDS: 0.9% Saline Lock 10 ML Syringe IV (11:32)
[2022-05-28] MEDS: guaiFENesin 1,200 MG Tablet 1200 MG PO ×2 (11:32→22:50)
[2022-05-28] MEDS: Potassium Chloride Oral Tablet 20 MEQ 40 MEQ PO (11:32)
[2022-05-28 12:26] LABS: M R Staph aureus DNA By PCR Negative (Negative); Probe Check PASS; Specimen Processing Control PASS
[2022-05-29 05:11] VITALS: BP 130/88; PULSE 80; RESP 16; TEMP 36.9; O2SAT 97
[2022-05-29 06:49] LABS: Absolute Lymphocyte Count 3.18 X10^3/uL (0.83-4.51); Absolute Neutrophil Count 9.4 X10^3/uL (2.0-7.7); Basophil# 0.01 X10^3/uL; Basophil% 0.1 % (0-1); Eosinophil# 0.01 X10^3/uL; Eosinophils% 0.1 % (0-5); Hematocrit 30.3 % (37-47); Lymphocyte # 3.18 X10^3/ul (0.83-4.51); Lymphocyte % 22.5 % (19-41); Mean Corp Hgb Conc 29.7 g/dL (32-36); Mean Corpuscular Hgb 19.6 pg (27.0-32.0); Mean Platelet Vol. 9.7 fl (6.2-12.0); Monocyte# 1.37 X10^3/uL; Monocyte% 9.7 % (0-10); NRBC Flagged by Analyzer 0 % (0-5); Neutrophil % 66.6 % (47-70); POSITIVE MORPHOLOGY YES; Platelet Count 343 K/mm3 (150-450); RBC Distribution Width SD 62.2 fl (35.1-43.9); Red Blood Count 4.59 M/mm3 (4.2-5.4); White Blood Count 14.1 K/mm3 (4.4-11.0)
[2022-05-29 06:54] LABS: Differential Indicated SCAN CRITERIA MET
[2022-05-29 07:16] LABS: Anion Gap 5 (5-15); BUN 13 mg/dL (7-18); BUN/Creat Ratio 12.7 RATIO (10-20); Calcium,Total 8.8 mg/dL (8.5-10.1); Chloride 108 mmol/L (98-107); Creatinine, Serum 1.02 mg/dL (0.55-1.02); EST Glomerular Filtration Rate 65 mL/min (>60); Est Glom Filt Rate - Afr Amer 79 mL/min (>60); Estimated Creatinine Clearance 72.07 ml/min; Glucose 112 mg/dL (74-106); Potassium 3.9 mmol/L (3.5-5.1); Sodium Level 139 mmol/L (136-145)
[2022-05-29 07:17] LABS: Anisocytosis 1+
[2022-05-29 08:05] VITALS: BP 144/94; PULSE 87; RESP 16; TEMP 36.6; O2SAT 98
[2022-05-29] MEDS: Enoxaparin 40 MG/0.4 ML Syringe SC (10:27)
[2022-05-29] MEDS: guaiFENesin 1,200 MG Tablet 1200 MG PO (10:27)
[2022-05-29] MEDS: hydroCHLOROthiazide 12.5mg 12.5 MG PO (10:27)
[2022-05-29 11:10] VITALS: O2SAT 97
--- NOTE | 2022-05-29 11:19 | DCINST_ITS ---
Discharge Instructions Diet Discharge Diet: Low fat / Low cholesterol and 2000 mg Sodium Diet Activity Discharge Activity: Return to Normal Activity Weight Bearing Status: Weight bearing as tolerated Dressing / Incision Call your doctor if you observe: Fever of 101 or Higher, Coldness, Increased Pain, Numbness or Tingling, Change in Color, Inability to urinate, Inability to have a bowel movement, Shortness of breath, Dizziness, Fainting spells, Swelling in the ankles, Chest pain, Prolonged hiccupping, Increased palpitations (irregular heartbeat) and Calf discomfort Follow Up Care When: IN 2 WEEKS Test Results: Test results from this visit will be discussed in further detail at your follow- up appointment, if applicable. Discharge Plan Admission Admit Date/Time: 05/28/22 08:12 Primary Reason for Your Visit: Left lung base pneumonic nodule Attending Provider: Ruben Watson Primary Care Provider: Catalina Nicole Discharge Orders/Prescriptions Prescriptions: New Mucus Relief ER 1,200 mg Tablet Extended Release 12hr 1,200 mg PO BID 7 Days Qty: 14 0RF hydrochlorothiazide 12.5 mg Capsule 12.5 mg PO DAILY Qty: 30 0RF amoxicillin-pot clavulanate 875-125 mg tablet 1 tab PO BID 7 Days Qty: 14 0RF Continued geritol liquid 10 ml PO DAILY Discontinued amoxicillin 500 mg capsule 500 mg PO TID Referrals / Follow Up: Catalina Nicole MD [Primary Care Provider] - Disposition Disposition (needs filled in before D/C Order can be placed): Home, Self Care
[2022-05-29 12:00] VITALS: BP 150/100; PULSE 91; RESP 18; TEMP 36.4; O2SAT 96
[2022-05-29 12:15] VITALS: BP 150/100; PULSE 91; RESP 18; TEMP 36.4; O2SAT 96
--- NOTE | 2022-05-29 12:22 | PCM.DC.SUM ---
Providers Date of Admission: 05/28/22 Date of Discharge: 05/29/22 Primary Care Physician: Dr. Catalina Nicole MD Reason For Visit: LEFT LUNG NODULE / PNEUMONIA Diagnosis Discharge Diagnosis (1) Pneumonia involving left lung: Status: Acute Code(s): J18.9 - Pneumonia, unspecified organism Plan This is a 36-year-old female is being admitted for left-sided pleuritic type chest pain and mild shortness of breath on exertion and CT chest finding of left lung base nodular lesion/pneumonia 1. Left lung base pneumonia with priority of early cavitation: Patient was admitted MedSurg floor. Patient was a started on amoxicillin on 05/25, she continued to have shortness of breath and left upper chest pain therefore admitted for IV antibiotic Zosyn, probably failure of outpatient medication. Patient herself denies any previous history of severe pneumonia or cavitary lesion or chronic lung disease including COPD emphysema or congenital cardiopulmonary disease. Pneumonia work-up including blood cultures, sputum culture, urinary antigen and respiratory panel ordered. ED physician discussed with professional bass fisherman and advised IV antibiotic. Mild leukocytosis. 05/29: Patient did not had fever. Patient pulse ox is normal on room air. Pneumonia work-up was negative including urinary antigens, respiratory panel negative. Blood cultures x2 are still pending. Patient is not tachypneic. Patient is discharged on 7 more days of Augmentin. Discontinue amoxicillin On walking pulse oximetry patient did not require oxygen, pulse ox 91% on ambient air. Patient heart rate went up to 162/min with little activity and came down to 140s. Patient has appointment with Dr. Velázquez as mentioned above. I think patient is physically deconditioned due to morbid obesity and weight loss counseling was done. Mild hyponatremia and hypokalemia: On IV fluid normal saline. Potassium replaced. 2. Chronic murmur, exact characterization and type unclear: She states he has a murmur for long time. 2D echo is ordered to ascertain that there is no vegetation in the valve. Patient was supposed to see Dr. Velázquez on June 03, 2022 for evaluation of murmur. 05/29: 2D echo was done which shows mild TR and trivial eccentric MR. EF 55%. LV systolic function normal. 3. Hypertension: BP is 142/94 slightly elevated. Patient not on antihypertensive medication. 05/29: Blood pressure was elevated . It was 161/103 and 164/103 therefore he started on HCTZ 12.5 mg daily. Advised to follow-up BMP in 1 week and patient has appointment with Dr. Velázquez on December 01 as expected to have hypokalemia on HCTZ. 4. Morbid obesity, chronic iron deficiency anemia, suspected sleep apnea, polycystic ovarian, migraine headache and history of DVT of popliteal vein in the past: These are not active issues. She follows Dr. Lares. H&H 10.1/34%. Platelet count 339,000. VT prophylaxis, high risk due to morbid obesity and history of popliteal vein DVT. Lovenox 40 mg SQ twice daily CODE STATUS full code. Patient does not have advanced directive. Discharge medication reconciliation done. Discharge follow-up instructions completed. Discharge process discussed with the patient and all questions were answered to patient's satisfaction. Total time spent, exact 35 minutes on discharge meds reconciliation, examination, coordination of care with nurses and ancillary staff, review of imaging and blood test and discussion with the patient on follow-up instructions. Clinical Impression(s) from Imaging Studies Chest CTA 05/28/22 04:53 IMPRESSION: Contrast bolus is limited to evaluate for pulmonary embolism in the distal vessels. No visualized centrally located clot. There is artifact of the chest due to the patient''s arms down by her side and superficial metallic leads. Small focus of left lower lobe consolidation suspicious for pneumonia. There is a smudgy nodular density within the left upper lobe which likely represents a small focus of inflammatory change with a similar finding in the right lung base. Recommend correlation with clinical history. On image #80 there is a suggestion of a possible early cavitation. Consider pneumonia possible cavitary pneumonia potentially septic emboli. Recommend follow-up to clearing. Electronically Signed: Chela Easley MD at 5:58 EST , Soft Tissue Neck CT 05/28/22 04:53 IMPRESSION: 1. No discrete drainable abscess. 2. Prominent nasopharyngeal and oropharyngeal mucosal thickening, uvula thickening, and tonsillar enhancement and swelling. Narrowing of the oropharyngeal transverse airway diameter. No evidence of significant epiglottis thickening. 3. No retropharyngeal abscess or venous occlusion. 4. Left greater than right cervical adenopathy. Likely reactive. No necrotic lymph nodes. 5. Advanced periodontal disease. Electronically Signed: Lou Mcnair MD at 6:48 EST , Medications at Discharge Home Medications geritol liquid 10 ml PO DAILY Check with primary doctor 11/19/21 amoxicillin 875 mg-potassium clavulanate 125 mg tablet 1 tab PO BID 7 days #14 tabs 05/29/22 guaifenesin 1,200 mg tablet, extended release 12 hr (Mucus Relief ER) 1,200 mg PO BID 7 days #14 tabs 05/29/22 hydrochlorothiazide 12.5 mg capsule 12.5 mg PO DAILY #30 caps 05/29/22 Physical Exam Narrative Physical exam General: Alert, Oriented x3, Cooperative, morbid obesity BMI 46.2 kg/m? HEENT: Atraumatic, PERRLA, EOMI, Normocephalic Oral: Multiple incisors and premolars dental caries with tartar/gingivitis. No oral ulcer . Deep pharyngeal structures could not be visualized. Neck: Short neck. Supple, No JVD, Negative Carotid Bruits Chest wall/lungs: No reproducible tenderness over left periscapular area. Air entry diminished in bilateral lung bases. No crepitation/rhonchi Cardiovascular: Regular rate, Regular Rhythm, Normal S1, Normal S2, systolic murmur over LLSB and cardiac apex Abdomen: Bowel Sounds Present, Soft, Non Tender, Non-Distended : No renal angle tenderness. No suprapubic tenderness. Extremities: No edema, Capillary Refill Less than 3 Seconds Skin: No rashes, No breakdown Musculoskeletal: No Tenderness to Palpation of Joints or Extremities, range of motion intact. Neurological: Cranial nerves II-XII grossly intact, DTR 2+/4 and Symmetrical, Neuro grossly intact Psych/Mental Status: Normal Affect, Appropriate. Weight / BMI Weight Weight: 286 lb 13.142 oz Body Mass Index (BMI) 45.6 ABG / Lab / Microbiology Data Result Diagrams: 05/29/22 06:15 05/29/22 06:15 Laboratory: Laboratory Results - last 24 hr 05/28/22 10:15: MRSA (PCR) Negative 05/29/22 06:15: WBC 14.1 H, RBC 4.59, Hgb 9.0 L, Hct 30.3 L, MCV 66.0 L, MCH 19.6 L, MCHC 29.7 L, RDW Std Deviation 62.2 H, RDW Coeff of Schuyler 27.0 H, Plt Count 343, MPV 9.7, Immature Gran % (Auto) 1.000 H, Neut % (Auto) 66.6, Lymph % (Auto) 22.5, [place] % (Auto) 9.7, Eos % (Auto) 0.1, Baso % (Auto) 0.1, Absolute Neuts (auto) 9.4 H, Absolute Lymphs (auto) 3.18, Nucleated RBC % 0, Anisocytosis 1+ 05/29/22 06:15: Sodium 139, Potassium 3.9, Chloride 108 H, Carbon Dioxide 26.0, Anion Gap 5, BUN 13, Creatinine 1.02, Estim Creat Clear Calc 72.07, Est GFR (MDRD) Af Amer 79, Est GFR (MDRD) Non-Af 65, BUN/Creatinine Ratio 12.7, Glucose 112 H, Calcium 8.8 Microbiology: Microbiology 05/28/22 14:45 Urine, Clean Catch Legionella Antigen - Final 05/28/22 14:45 Urine, Clean Catch Streptococcus pneumoniae Antigen (M - Final 05/28/22 11:20 Mucosa - Nasopharyngeal Respiratory Panel (PCR) - Final 05/28/22 10:15 Nasal Secretion SARS-CoV-2 & FLU Antigen (Rapid) - Final Radiography Diagnostic Testing: Radiology Impression Echocardiogram 05/28/22 08:36 Interpretation Summary Left ventricular systolic function is normal. The estimated ejection fraction is 55 %. Trivial eccentric mitral valve insufficiency. Mild tricuspid valve insufficiency. Unable to estimate RV systolic pressure due to insufficient tricuspid regurgitant envelope. Diastolic function is indeterminate. Ordering Physician: Ruben Watson Referring Physician: CATALINA NICOLE Performed By: Sharron Sterling RCS D/C Instructions Discharge Diet: Low fat / Low cholesterol and 2000 mg Sodium Diet Weight Bearing Status: Weight bearing as tolerated Call your doctor if you observe: Fever of 101 or Higher, Coldness, Increased Pain, Numbness or Tingling, Change in Color, Inability to urinate, Inability to have a bowel movement, Shortness of breath, Dizziness, Fainting spells, Swelling in the ankles, Chest pain, Prolonged hiccupping, Increased palpitations (irregular heartbeat) and Calf discomfort When: IN 2 WEEKS Meaningful Use Info Meaningful Use Diagnoses (Choose all that apply): None applicable Discharge Plan Admission Admit Date/Time: 05/28/22 08:12 Primary Reason for Your Visit: Left lung base pneumonic nodule Attending Provider: Ruben Watson Primary Care Provider: Catalina Nicole Discharge Orders/Prescriptions Prescriptions: New Mucus Relief ER 1,200 mg Tablet Extended Release 12hr 1,200 mg PO BID 7 Days Qty: 14 0RF hydrochlorothiazide 12.5 mg Capsule 12.5 mg PO DAILY Qty: 30 0RF amoxicillin-pot clavulanate 875-125 mg tablet 1 tab PO BID 7 Days Qty: 14 0RF Continued geritol liquid 10 ml PO DAILY Discontinued amoxicillin 500 mg capsule 500 mg PO TID Referrals / Follow Up: Catalina Nicole MD [Primary Care Provider] - Disposition Disposition (needs filled in before D/C Order can be placed): Home, Self Care Charges/Coding Visit Charges Inpatient E&M: 53770 Disch Hosp >30min
[2022-05-29 14:00] VITALS: BP 151/111; PULSE 98; RESP 18; TEMP 36.7; O2SAT 93
[2022-05-29 14:11] LABS: Pathologist Review Reviewed
--- NOTE | 2022-05-29 15:14 | CASEMGMT ---
Addendum entered by Effie Negrete 05/29/22 15:19: Per pt nurse, pt did not qualify for home oxygen. Original Note: Pt nurse notified this RN CM that pt needs her rx trf'd to [facility] pharmacy. TC to [facility], spoke with Katya, she will get meds trf'd here.
--- NOTE | 2022-05-29 15:45 | PHA.DC.MR ---
Pharmacy Service has performed discharge medication reconciliation for this patient. The patient's discharge medication list was reviewed for discrepancies and discrepancies were resolved. Home Medications geritol liquid 10 ml PO DAILY Check with primary doctor 11/19/21 amoxicillin 875 mg-potassium clavulanate 125 mg tablet 1 tab PO BID 7 days #14 tabs 05/29/22 guaifenesin 1,200 mg tablet, extended release 12 hr (Mucus Relief ER) 1,200 mg PO BID 7 days #14 tabs 05/29/22 hydrochlorothiazide 12.5 mg capsule 12.5 mg PO DAILY #30 caps 05/29/22
== END 2022-05-29 16:30 | disposition home or self-care (01) ==
LOC: ED 04:30 → MS3 08:37
PROVIDERS: Admitting Provider Internal Medicine; Emergency Provider Emergency Medicine; PCP Internal Medicine; Visit Provider Internal Medicine
DX: J18.9 Pneumonia, unspecified organism (principal); E66.01 Morbid (severe) obesity due to excess calories; Z68.42 Body mass index [BMI] 45.0-49.9, adult; E87.1 Hypo-osmolality and hyponatremia; H92.02 Otalgia, left ear; R91.1 Solitary pulmonary nodule; J35.1 Hypertrophy of tonsils; I10 Essential (primary) hypertension; D50.9 Iron deficiency anemia, unspecified; E87.6 Hypokalemia; Z86.718 Personal history of other venous thrombosis and embolism; R01.1 Cardiac murmur, unspecified
CPT/HCPCS: J7030; 36415; 70491; 71275; 80048; 84484; 85025; 87040; 87428; 87449; 87633; 87641; 93005; 93306; 96361; 96365; 96366; 96368; 96372; 96375; 99221; 99252; 99285; J7050; Q9967; A4216; G0378; G0463

== ENCOUNTER → 2022-06-03 | Outpatient (CLI) | payer MEDICAID, SELFPAY ==
[2022-06-03 16:28] LABS: Cholesterol 210 mg/dL (200); High Density Lipoprotein 35 mg/dL; Thyroid Stim Hormone (TSH) 2.38 uIU/mL (0.358-3.74); Triglycerides 136 mg/dL; Very Low Density Lipoprotein 27 mg/dL (5-40)
== END | disposition home or self-care (01) ==
LOC: LAB 14:30
PROVIDERS: PCP Internal Medicine; Referring Provider Internal Medicine Cardiovascular Disease; Visit Provider Internal Medicine Cardiovascular Disease
DX: I10 Essential (primary) hypertension (principal)
CPT/HCPCS: 36415; 80061; 84443

== ENCOUNTER 2023-02-01 19:15 | Emergency (ER) | payer MEDICAID, SELFPAY ==
[2023-02-01 19:16] VITALS: BP 145/94; PULSE 98; RESP 18; TEMP 36.7; O2SAT 98; BMI 46.5
--- NOTE | 2023-02-01 19:58 | EX.ED.DYSGE1 ---
HPI History of Present Illness Chief Complaint: Syncope Informant: patient Narrative Narrative: 37-year-old female states she was standing in line at [facility] when she started feeling poorly gradually, it worsened, she states she did not feel lightheaded or dizzy but states that she felt like she was going to lose consciousness and cannot explain it otherwise. She felt a little chest discomfort a little shortness of breath, she was sweating, she was anxious, someone brought her some Gatorade she drank a bottle of it, she is not sweating anymore and she feels a little better but still feels poorly and has trouble hearing like she is going to lose consciousness. She denies any chest symptoms at this current moment. She has a history of some type of clotting disorder she is not sure which one, she used to be anticoagulated because of a DVT in one of her legs, she took the first month and then ran out of it and never got it refilled and has been off anticoagulants for over a year. She states she also has a history of anemia and iron deficiency, she has been dyspneic with light activities for the last 1 to 2 weeks which is unusual. [facility] Medical History Abnormal endocrine laboratory test finding Abnormal Pap smear of cervix Anemia DVT (deep venous thrombosis) Enlarged uterus Essential hypertension Headache, migraine Hypertension Menorrhagia Moderately severe depression Murmur Pneumonia involving left lung Polycystic ovaries Strep throat Uterine fibroid Home Medications hydrochlorothiazide 25 mg tablet 25 mg PO DAILY #30 tabs 06/03/22 [Rx Last Taken Unknown] bupropion HCl 150 mg tablet,12 hr sustained-release (Wellbutrin SR) 150 mg PO BID #60 ea 12/26/22 [Rx Last Taken Unknown] spironolactone 50 mg tablet 50 mg PO DAILY #30 tabs 12/26/22 [Rx Last Taken Unknown] medroxyprogesterone 5 mg tablet 5 mg PO DAILY #10 tabs 12/27/22 [Rx Last Taken Unknown] Allergy/AdvReac Type Severity Reaction Status Date / Time lisinopril AdvReac Intermediate felt weird Verified 02/01/23 19:18 morphine AdvReac Itching Verified 02/01/23 19:18 sulfamethoxazole AdvReac Itching Verified 02/01/23 19:18 [From Bactrim] trimethoprim [From Bactrim] AdvReac Itching Verified 02/01/23 19:18 Family History Grandmother Breast cancer Grandfather Cancer lung Throat cancer Mental disorder schizophrenia Mother Alcoholism Autoimmune disorder RA and fibromyalgia Father Alcoholism Aunt Cervical cancer Melanoma Ovarian cancer Grandmother Heart disease Cardiac pacemaker in situ Myocardial infarction Surgical History delivery delivered History of foot surgery Social History household members: significant other and children current occupational status: employed current occupation: health insurance sales agent Smoking Status: Never smoker Electronic Cigarette Use: not used alcohol intake: never substance use type: does not use caffeine: Yes what type of physical activity do you participate in: aerobics frequency: 5-6 times per week seatbelt use: always do you feel safe at home: Yes 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 ROS ED Constitutional Constitutional ED: Reports as per HPI, malaise and sweats; Denies chills or fever(s) Eyes Eyes: Denies change in vision or diplopia ENT ENT ED: Reports as per HPI, abnormal hearing and other Details: Whooshing sound in both ears chronically, intermittent ; Denies rhinorrhea or sore throat Cardiovascular Cardiovascular: Reports chest pain; Denies orthopnea or palpitations Respiratory/Chest Respiratory/Chest: Reports dyspnea and dyspnea on exertion; Denies cough or orthopnea Gastrointestinal Gastrointestinal: Denies abdominal pain, diarrhea, nausea or vomiting Genitourinary Genitourinary ED: Denies dysuria or hematuria Musculoskeletal Musculoskeletal: Denies back pain or neck pain Integumentary Denies abscess or rash Neurologic Neurologic: Denies headache(s), paresthesias or weakness Psychiatric Psychiatric: Reports anxiety; Denies suicidal thoughts EXAM Physical Exam Const Vital Signs: 02/01/23 19:16 02/01/23 19:42 02/01/23 20:16 Temperature 98.0 F Temperature Source Temporal Pulse Rate 98 Respiratory Rate 18 Respiratory Effort Normal Non-Labored Blood Pressure 145/94 H Blood Pressure Mean 111 Pulse Ox 98 Oxygen Delivery Method Room Air Room Air 02/01/23 21:22 02/01/23 23:07 Temperature Temperature Source Pulse Rate 85 Respiratory Rate 18 Respiratory Effort Blood Pressure 113/69 Blood Pressure Mean 83 Pulse Ox 95 99 Oxygen Delivery Method Room Air Positive well nourished, well developed and obese General Appearance ED: well developed and NAD Nutritional Appearance: obese HEENT Reports moist mucous membranes normocephalic and atraumatic Eyes PERRL and EOMs intact bilaterally Neck full ROM and supple Resp normal respiratory effort and clear to auscultation bilaterally Cardio regular rate, regular rhythm and no murmurs Rate: Negative for tachycardic GI non-tender and non-distended Auscultation: normoactive bowel sounds Palpation: soft Back/Spine no CVA tenderness General Back: other FROM Extremity normal to inspection General Extremety ED: Negative for edema, pulses abnormal or tenderness General Extremity: Negative for edema or pulses abnormal Neuro oriented x3, CN's II-XII intact bilaterally and no sensory deficits noted Sensorium / Orientation: awake and alert Motor Exam: strength 5/5 throughout Psych mental status grossly normal Skin no rashes or lesions noted and no wounds MDM MDM MDM Narrative Medical decision making narrative: Wells' Criteria for Pulmonary Embolism from [employer] on 02/01/2023 All calculations should be rechecked by clinician prior to use RESULT SUMMARY: 1.5 points Low risk group: 1.3% chance of PE in an ED population. Another study assigned scores <=4 as ?PE Unlikely? and had a 3% incidence of PE. INPUTS: Clinical signs and symptoms of DVT ?> 0 = No PE is #1 diagnosis OR equally likely ?> 0 = No Heart rate > 100 ?> 0 = No Immobilization at least 3 days OR surgery in the previous 4 weeks ?> 0 = No Previous, objectively diagnosed PE or DVT ?> 1.5 = Yes Hemoptysis ?> 0 = No Malignancy w/ treatment within 6 months or palliative ?> 0 = No Given the patient meets Wells criteria for getting a D-dimer, and could have other reasons for the symptoms such as iron deficiency anemia, initially obtained EKG, labs, chest x-ray, and a D-dimer to screen for pulmonary embolus. The D-dimer is elevated, the chest x-ray 2 views appear normal on my interpretation, radiology in agreement, also arguing for CT angiography of the chest in order to rule out or rule in pulmonary embolus. This was performed, I reviewed the images and the report which I agree with, negative for PE or anything else acute. Her hemoglobin did come back low at 7.9, certainly this could be contributing to her symptoms as well. The red cells are microcytic consistent with iron deficiency. She states that she was getting infusions in the past which she may need to have more of. She states she also has a history of menorrhagia, follows with Dr. Mak, blood loss contributes to her anemia, and they have considered possible hysterectomy in the past, the patient states with work it is hard to fit that abdomen but she may need to revisit it. Given that her D-dimer is elevated and her CT is negative, I inquired about DVTs. Patient states that every time she has had a DVT she is very symptomatic with regards to one of her legs, and she has had none of that recently. Therefore I do not think she needs to be anticoagulated now, especially since that can cause more blood loss when she is having her cycle. She is in agreement. 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 After IV fluid she is feeling much better, and asymptomatic at this time with normal vital signs. Her hemoglobin is just below 8 I do not necessarily think she has an indication for transfusion right now, and do not know that the benefits outweighed the risks and she is agreeable with that. Therefore we will discharge her home for close outpatient follow-up and she is comfortable with that plan. Lab Data Attestation: I reviewed the patient's lab results. Labs: Laboratory Results - last 24 hr 02/01/23 20:13 WBC 9.9 RBC 4.44 Hgb 7.9 L Hct 27.4 L MCV 61.7 L MCH 17.8 L MCHC 28.8 L RDW Std Deviation 43.1 RDW Coeff of Schuyler 20.1 H Plt Count 451 H MPV 9.2 Immature Gran % (Auto) 0.300 Neut % (Auto) 68.1 Lymph % (Auto) 19.9 Maries % (Auto) 9.9 Eos % (Auto) 1.4 Baso % (Auto) 0.4 Absolute Neuts (auto) 6.8 Absolute Lymphs (auto) 1.98 Nucleated RBC % 0 Differential Comment SCANNED Polychromasia RARE Hypochromasia 2+ Anisocytosis 1+ Target Cells RARE Ovalocytes 1+ Crenated Cell RARE D-Dimer Quant (PE/DVT) 0.97 H* Sodium 137 Potassium 3.7 Chloride 105 Carbon Dioxide 26.0 Anion Gap 6 BUN 11 Creatinine 1.20 H Estim Creat Clear Calc 63.03 Est GFR (MDRD) Af Amer 65 Est GFR (MDRD) Non-Af 54 L BUN/Creatinine Ratio 9.2 L Glucose 92 Calcium 9.0 Troponin I High Sens 4 Radiography Diagnostic Testing: Clinical Impression(s) from Imaging Studies Chest X-Ray 02/01/23 20:19 IMPRESSION: Normal x-ray examination of the chest. Electronically Signed: Kai Wade MD at 20:40 EDT Reading Location ID and State: [employer] / [employer] Sales Tel , Service support , Chest CTA 02/01/23 20:47 IMPRESSION: Normal CTA chest examination, without a demonstrated pulmonary embolism or arterial dissection. Electronically Signed: Kai Wade MD at 21:46 EDT Reading Location ID and State: [id number] / [employer] Tel , Service support , Rhythm Strip Rhythm Strip: Sinus Rhythm Rate: 90 Ectopy: None EKG Initial EKG: Attestation: I personally reviewed and interpreted this EKG as follows: Interpretation: Sinus Rhythm and No Acute Injury Pattern Comments: Normal EKG Discharge Plan Triage Chief Complaint: Syncope ED Provider: Celestine Chavez Dx/Rx/DC Orders Clinical Impression: KOO (dyspnea on exertion), Near syncope, Iron deficiency anemia, H/O menorrhagia, Symptomatic anemia Instructions: ED Anemia, Iron-Deficiency (Adult) Prescriptions: No Action hydrochlorothiazide 25 mg tablet 25 mg PO DAILY Qty: 30 6RF bupropion HCl [Wellbutrin SR] 150 mg tablet sustained-release 12 hr 150 mg PO BID Qty: 60 0RF Rx Instructions: take once daily for 3 days, then increase to twice daily spironolactone 50 mg tablet 50 mg PO DAILY Qty: 30 12RF medroxyprogesterone 5 mg tablet 5 mg PO DAILY Qty: 10 6RF Primary Care Provider: Catalina Nicole Referrals: Catalina Nicole MD [Primary Care Provider] - Kole Lares MD [Med Staff - Active Staff] - As soon as possible Moriah Samayoa DO [Med Staff - Active Staff] - Disposition Disposition: Home, Self Care
[2023-02-01] MEDS: 0.9% Normal Saline (500mL Bag) 500 ML 999 ML IV (20:17)
--- NOTE | 2023-02-01 20:19 | RAD_ITS ---
STUDY: X-RAY CHEST REASON FOR EXAM: Female, 37 years old. Dyspnea TECHNIQUE: PA and lateral views of the chest. COMPARISON: None. FINDINGS: The lungs are clear and expanded. There is no demonstrated pleural abnormality. Normal size heart. Normal mediastinum and randa. Normal visualized pulmonary arteries. Normal visualized aortic arch and descending thoracic aorta. Normal visualized thoracic spine. Normal visualized ribs, clavicles, and shoulders. There is no demonstrated abnormality of the visualized soft tissue structures of the upper abdomen. RAD/Chest PA and Lateral IMPRESSION: Normal x-ray examination of the chest. Electronically Signed: Kai Wade MD at 20:40 EDT ,
[2023-02-01 20:20] LABS: Absolute Lymphocyte Count 1.98 X10^3/uL (0.83-4.51); Absolute Neutrophil Count 6.8 X10^3/uL (2.0-7.7); Basophil# 0.04 X10^3/uL; Basophil% 0.4 % (0-1); Eosinophil# 0.14 X10^3/uL; Eosinophils% 1.4 % (0-5); Hematocrit 27.4 % (37-47); Hemoglobin 7.9 g/dL (12.0-15.0); Lymphocyte # 1.98 X10^3/ul (0.83-4.51); Lymphocyte % 19.9 % (19-41); Mean Corp Hgb Conc 28.8 g/dL (32-36); Mean Corpuscular Hgb 17.8 pg (27.0-32.0); Mean Corpuscular Volume 61.7 fL (81-99); Mean Platelet Vol. 9.2 fl (6.2-12.0); Monocyte# 0.98 X10^3/uL; Monocyte% 9.9 % (0-10); NRBC Flagged by Analyzer 0 % (0-5); Neutrophil # 6.77 X10^3/uL (2.7-7.7); Neutrophil % 68.1 % (47-70); POSITIVE MORPHOLOGY YES; Platelet Count 451 K/mm3 (150-450); RBC Distribution Width CV 20.1 % (11.6-14.6); RBC Distribution Width SD 43.1 fl (35.1-43.9); Red Blood Count 4.44 M/mm3 (4.2-5.4); White Blood Count 9.9 K/mm3 (4.4-11.0)
[2023-02-01 20:24] LABS: Differential Indicated SCAN CRITERIA MET
[2023-02-01 20:34] LABS: D-Dimer Quantitative (DVT/PE) 0.97 FEU/ug/m (0.27-0.49)
[2023-02-01 20:42] LABS: Anion Gap 6 (5-15); BUN 11 mg/dL (7-18); BUN/Creat Ratio 9.2 RATIO (10-20); Chloride 105 mmol/L (98-107); EST Glomerular Filtration Rate 54 mL/min (>60); Est Glom Filt Rate - Afr Amer 65 mL/min (>60); Estimated Creatinine Clearance 63.03 ml/min; Glucose 92 mg/dL (74-106); Potassium 3.7 mmol/L (3.5-5.1); Sodium Level 137 mmol/L (136-145); Troponin-I HS 4 pg/mL (3.0-54.0)
[2023-02-01 20:44] LABS: Anisocytosis 1+; Differential Comment SCANNED
[2023-02-01 20:45] LABS: Crenated RBC RARE; Hypochromasia 2+; Ovalocyte 1+; Polychromasia RARE; Target Cells RARE
--- NOTE | 2023-02-01 20:47 | CT_ITS ---
STUDY: CTA CHEST REASON FOR EXAM: Female, 37 years old. sob, hx DVT, elevated d-diimer RADIATION DOSAGE (If Supplied By Facility): CTDIvol = ( 22.17 ) mGy, DLP = ( 522.73 ) mGycm TECHNIQUE: The examination was performed with the intravenous administration of IV 100mL Isovue-370. Post-processing of the angiographic images was performed, with multiplanar reformation and 3D reconstruction. Individualized dose optimization techniques were used for this CT. COMPARISON: 05/28/2022, chest x-ray earlier today FINDINGS: Normal enhancement of the main pulmonary artery and right and left pulmonary arteries. Normal enhancement of the bilateral peripheral pulmonary arteries. There is no demonstrated pulmonary embolism. Normal thoracic aorta and visualized great vessels. There is no demonstrated aortic dissection. Normal heart and pericardium. Normal mediastinum. Normal hilar regions. Normal visualized trachea and bronchi. The lungs are well expanded. Normal pulmonary parenchyma. Normal pleura. Normal chest wall structures. Normal osseous structures. Normal visualized upper abdomen. CT/CTA Chest W/WO Contrast IMPRESSION: Normal CTA chest examination, without a demonstrated pulmonary embolism or arterial dissection. Electronically Signed: Kai Wade MD at 21:46 EDT ,
[2023-02-01 21:22] VITALS: O2SAT 95
[2023-02-01 23:07] VITALS: BP 113/69; PULSE 85; RESP 18; O2SAT 99
== END 2023-02-01 23:23 | disposition home or self-care (01) ==
PROVIDERS: Emergency Provider Emergency Medicine; PCP Internal Medicine; Visit Provider Emergency Medicine
DX: R06.09 Other forms of dyspnea (principal); R55 Syncope and collapse; D50.9 Iron deficiency anemia, unspecified; E66.9 Obesity, unspecified; Z86.718 Personal history of other venous thrombosis and embolism
CPT/HCPCS: 71046; 71275; 80048; 84484; 85025; 85379; 93005; 99283; J7040; Q9967

== ENCOUNTER 2023-07-24 13:53 | Emergency (ER) | payer MEDICAID, SELFPAY ==
[2023-07-24 13:54] VITALS: BP 137/115; PULSE 106; RESP 18; TEMP 36.9; O2SAT 99; BMI 47.2
--- NOTE | 2023-07-24 14:13 | VDLE_ITS ---
Reason For Study: pain RIGHT LEFT CFV is patent and compressible. CFV is compressible, spontaneous, phasic, Prox and Mid FV are compressible. competent, and demonstrates normal Acute deep vein thrombosis is noted in the augmentation. Distal FV. It is dilated and NONCOMPRESSIBLE. Acute deep vein thrombosis is noted in the Soleus V. It is dilated and NONCOMPRESSIBLE. Acute deep vein thrombosis is noted in the POP V. It is dilated and NONCOMPRESSIBLE. Acute deep vein thrombosis is noted in the T/P Trunk. It is dilated and NONCOMPRESSIBLE. Acute deep vein thrombosis is noted in the PTV. It is dilated and NONCOMPRESSIBLE. RT PerV is compressible. GSV is normal. Procedure This is a venous duplex using B-mode, color flow and spectral Doppler. Exam performed portable in ED. The exam was diagnostic. A preliminary report was called and/or faxed to Dr. Alfaro. VL/Venous Duplex US, Unilateral Interpretation Summary Acute deep vein thrombosis is noted in the right femoral vein. Acute deep vein thrombosis is noted in the right popliteal vein. Acute deep vein thrombosis is noted in the right t ibio-peroneal trunk. Acute deep vein thrombosis is noted in the right posterior tibial vein. Acute d eep vein thrombosis is noted in the right soleus vein. The right common femoral vein and peroneal v ein are patent and compressible. The right great saphenous vein appears patent and compressible se gmentally. The left common femoral vein is patent and compressible . Ordering Physician: Moriah Alfaro Performed By: Kenn Waldrop RVT
--- NOTE | 2023-07-24 14:13 | EX.ED.DYSGE1 ---
HPI History of Present Illness Chief Complaint: Lower Extremity Injury Detail of Chief Complaint: Right calf pain Informant: patient Narrative Narrative: Patient presents with right calf pain for the past 4 days or so. She states she now feels it is moving back to the back of her knee. She has a history of clotting disorder and DVTs. She had previously been on Xarelto. She states that she is currently off of Xarelto because of heavy periods, however feels that is now under control and she was supposed be put back on her anticoagulants. She denies chest pain or shortness of breath. Previous clots have been in her left leg. [facility] Medical History (Updated 07/24/23 @ 14:[address] Moriah Alfaro MD) Abnormal endocrine laboratory test finding Abnormal Pap smear of cervix Anemia DVT (deep venous thrombosis) Enlarged uterus Essential hypertension Factor VIII (functional) deficiency Headache, migraine Hypertension Menorrhagia Moderately severe depression Murmur Pneumonia involving left lung Polycystic ovaries Strep throat Uterine fibroid Home Medications hydrochlorothiazide 25 mg tablet 25 mg PO DAILY #30 tabs 06/03/22 [Rx Last Taken Unknown] bupropion HCl 150 mg tablet,12 hr sustained-release (Wellbutrin SR) 150 mg PO BID #60 ea 12/26/22 [Rx Last Taken Unknown] spironolactone 50 mg tablet 50 mg PO DAILY #30 tabs 12/26/22 [Rx Last Taken Unknown] medroxyprogesterone 5 mg tablet 5 mg PO DAILY #10 tabs 12/27/22 [Rx Last Taken Unknown] rivaroxaban 15 mg (42)-20 mg (9) tablets in a starter pack (Xarelto DVT-PE Treatment 30-Day Starter) See Rx Instructions PO .COMPLEX #51 tabs 07/24/23 [Rx Last Taken Unknown] Allergy/AdvReac Type Severity Reaction Status Date / Time lisinopril AdvReac Intermediate felt weird Verified 07/24/23 13:54 morphine AdvReac Itching Verified 07/24/23 13:54 sulfamethoxazole AdvReac Itching Verified 07/24/23 13:54 [From Bactrim] trimethoprim [From Bactrim] AdvReac Itching Verified 07/24/23 13:54 Family History Grandmother Breast cancer Grandfather Cancer lung Throat cancer Mental disorder schizophrenia Mother Alcoholism Autoimmune disorder RA and fibromyalgia Father Alcoholism Aunt Cervical cancer Melanoma Ovarian cancer Grandmother Heart disease Cardiac pacemaker in situ Myocardial infarction Surgical History delivery delivered History of foot surgery Social History household members: significant other and children current occupational status: employed current occupation: auto damage insurance appraiser Smoking Status: Never smoker Electronic Cigarette Use: not used alcohol intake: never substance use type: does not use caffeine: Yes what type of physical activity do you participate in: aerobics frequency: 5-6 times per week seatbelt use: always do you feel safe at home: Yes 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 ROS ED Constitutional Constitutional ED: Denies chills or fever(s) Eyes Eyes: Denies discharge from eye(s) ENT ENT ED: Denies discharge from eye(s), rhinorrhea or sore throat Cardiovascular Cardiovascular: Denies chest pain or palpitations Respiratory/Chest Respiratory/Chest: Denies cough or dyspnea Gastrointestinal Gastrointestinal: Denies abdominal pain, nausea or vomiting Musculoskeletal Musculoskeletal: Reports extremity pain; Denies back pain Integumentary Denies Abrasions or rash Neurologic Neurologic: Denies headache(s) or weakness Psychiatric Psychiatric: Denies anxiety or depression Allergic/Immunologic Allergic/Immunologic ED: Denies lip swelling or urticaria EXAM Physical Exam Const Vital Signs: 07/24/23 13:54 Temperature 98.4 F Temperature Source Temporal Pulse Rate 106 H Respiratory Rate 18 Blood Pressure 137/115 H Blood Pressure Mean 122 Pulse Ox 99 Oxygen Delivery Method Room Air Positive well nourished and well developed General Appearance ED: well developed HEENT Reports moist mucous membranes Eyes EOMs intact bilaterally Chest Wall inspection of chest normal and palpation of chest normal Resp normal respiratory effort and clear to auscultation bilaterally Cardio regular rate and regular rhythm GI non-tender Palpation: soft Extremity Extremity Narrative: Mild posterior right calf tenderness. No palpable cords. No significant edema at this time. Strong distal pulses with full range of motion. Neuro oriented x3 and no sensory deficits noted Motor Exam: strength 5/5 throughout Psych mental status grossly normal Skin no rashes or lesions noted MDM MDM MDM Narrative Medical decision making narrative: Venous ultrasound of the right lower extremity obtained to evaluate for DVT. Venous ultrasound performed at bedside. She is positive for DVT in the distal femoral vein and distal vessels. Test results discussed with the patient. We will restart her on Xarelto. First dose is given in the ER prescription sent to pharmacy for her. Discharge Plan Triage Chief Complaint: Lower Extremity Injury ED Provider: Moriah Alfaro Dx/Rx/DC Orders Clinical Impression: DVT (deep venous thrombosis) Instructions: ED Deep Vein Thrombosis (DVT) Prescriptions: New Xarelto DVT-PE Treat 30d Start 15 mg (42)- 20 mg (9) tablets,dose pack See Rx Instructions .ROUTE .COMPLEX Qty: 51 0RF Rx Instructions: take one-15 mg tablet twice daily for 21 days, then one-20 mg tablet once daily; must take with meal/food No Action hydrochlorothiazide 25 mg tablet 25 mg PO DAILY Qty: 30 6RF bupropion HCl [Wellbutrin SR] 150 mg tablet sustained-release 12 hr 150 mg PO BID Qty: 60 0RF Rx Instructions: take once daily for 3 days, then increase to twice daily spironolactone 50 mg tablet 50 mg PO DAILY Qty: 30 12RF medroxyprogesterone 5 mg tablet 5 mg PO DAILY Qty: 10 6RF Primary Care Provider: Catalina Nicole Referrals: Catalina Nicole MD [Primary Care Provider] - 1-2 Weeks Disposition Disposition: Home, Self Care
[2023-07-24] MEDS: Rivaroxaban 15 MG Tablet PO (15:06)
[2023-07-24 15:10] VITALS: BP 135/91; PULSE 94; RESP 16; TEMP 37.1; O2SAT 98
== END 2023-07-24 15:11 | disposition home or self-care (01) ==
PROVIDERS: Emergency Provider Emergency Medicine; PCP Internal Medicine; Visit Provider Emergency Medicine
DX: I82.4Z1 Acute embolism and thrombosis of unspecified deep veins of right distal lower extremity (principal); Z86.718 Personal history of other venous thrombosis and embolism
CPT/HCPCS: 93971; 99282